=== PATIENT | female | born 1965 | race African-American/Black ===

== ENCOUNTER 2023-05-28 00:53 | Observation (INO) | payer OTHER, SELFPAY ==
[2023-05-28] VITALS (20 sets, daily range): BP systolic 107–145; BP diastolic 63–99; PULSE 63–117; RESP 15–22; TEMP 35.7–36.8; O2SAT 96–100; BMI 39.1
--- NOTE | ~2023-05-28 | XR_ITS ---
EXAMINATION: XR chest 1V portable DATE: 05/28/2023 02:32 INDICATION: Palpitations. TECHNIQUE: A single frontal view of the chest was obtained. COMPARISON: None. FINDINGS: There is no pneumonia, pleural effusion, or pneumothorax. The heart size is normal. There a re changes of anterior fusion procedure in cervical spine. IMPRESSION: 1. No acute cardiopulmonary disease. Reviewed, dictated and finalized at location E.
--- NOTE | 2023-05-28 02:13 | ECG_ITS ---
Measurements Intervals [place] Rate: 120 P: CO: 0 QRS: 94 QRSD: 100 T: -26 QT: 328 QTc: 464 Interpretive Statements ATRIAL FIBRILLATION WITH RAPID VENTRICULAR RESPONSE RIGHT AXIS DEVIATION CANNOT RULE OUT SEPTAL INFARCT, AGE INDETERMINATE BORDERLINE ST-T WAVE ABNORMALITY- INFERIOR LEADS ABNORMAL ECG NO PREVIOUS ECG AVAILABLE FOR COMPARISON Electronically Signed On 05-28-2023 6:37:44 CDT by Jean Carlos Barbour D.O.
[2023-05-28 02:31] LABS: Basophils Percent Auto 0.3 % (0.2-1.2); Eosinophils Absolute Auto 0.1 K/mm3 (0-0.3); Eosinophils Percent Auto 2.1 % (0-4.4); Hematocrit 38.4 % (37.0-47.0); Hemoglobin 12.3 g/dL (12.0-15.0); Immature Granulocyte Absolute 0.02 K/mm3 (0.00-0.031); Immature Granulocyte Percent A 0.3 % (0-0.5); Lymphocytes Absolute Auto 2.79 K/mm3 (0.9-3.2); Lymphocytes Percent Auto 41.3 % (18.3-44.2); Mean Corpuscular Hemoglobin 26.9 pg (26-34); Mean Platelet Volume 9.7 fl (7.4-10.4); Monocytes Absolute Auto 0.5 K/mm3 (0.1-0.6); Monocytes Percent Auto 6.8 % (2.6-8.5); Neutrophils Absolute Auto 3.3 K/mm3 (1.3-6.7); Neutrophils Percent Auto 49.2 % (45.5-73.1); Platelet Count Result 445 k/mm3 (150-375); Red Blood Count 4.57 M/mm3 (4.2-5.4); White Blood Count 6.8 K/mm3 (4.5-10.0)
--- NOTE | 2023-05-28 02:32 | ED.GENADULT ---
HPI - General Adult General Chief complaint: Headache Stated complaint: high blood pressure Time Seen by Provider: 05/28/23 02:07 History of Present Illness HPI narrative: Patient is a 58-year-old female who presents the emergency department with chief complaint of feeling dizzy and palpitations patient states she had some pressure in her head and noticed that her blood pressure was elevated in the 140s over 120s the patient states that she is on medicines for high blood pressure. The patient states that she is feeling better since she has been here in the emergency department. Patient states that she had no chest pain denies shortness of breath. Related Data Allergies Allergy/AdvReac Type Severity Reaction Status Date / Time No Known Allergies Allergy Verified 05/28/23 01:36 Review of Systems Review of Systems: A 10 system review of systems was completed on the patient and is negative except for what is stated in the HPI. Nursing and ancillary documentation was reviewed. Exam Narrative: GENERAL: Well-appearing, well-nourished, and in no acute distress. HEAD: Normocephalic, atraumatic. EYES: PERRLA and EOMI. ENT: Nares clear, no rhinorrhea or epistaxis. Mucous membranes moist. NECK: Supple. CHEST: Clear to auscultation. No respiratory distress. HEART: Tachycardic rate rate irregular and rhythm. No murmur heard. Normal peripheral pulses. ABDOMEN: Soft, nontender, nondistended, normal active bowel sounds. EXTREMITIES: Normal range of motion. No edema. SKIN: Warm, dry, no rash. NEURO: No focal deficits. Alert and oriented x3. PSYCH: Normal mood and affect. Course Vital Signs Vital signs: Vital Signs Temperature 36.8 C 05/28/23 00:57 Pulse Rate 85 05/28/23 00:57 Respiratory Rate 20 05/28/23 00:57 Blood Pressure 140/99 H 05/28/23 00:57 Pulse Oximetry 97 05/28/23 00:57 Oxygen Delivery Room Air 05/28/23 00:57 Temperature 36.6 C 05/28/23 01:37 Pulse Rate 106 H 05/28/23 02:56 Respiratory Rate 19 05/28/23 02:56 Blood Pressure 145/87 H 05/28/23 02:56 Pulse Oximetry 99 05/28/23 02:56 Oxygen Delivery Room Air 05/28/23 00:57 Medical Decision Making MDM Narrative Medical decision making narrative: Differential diagnosis includes dysrhythmia, electrolyte abnormality, EKG showed atrial fibrillation with a rate of [address] elevation or ST depression Laboratory studies were obtained which showed a potassium of 3.7 otherwise electrolytes are within normal limits magnesium was 2.2 CBC was within normal limits troponin was negative Chest x-ray showed no focal infiltrates no widened mediastinum Patient was given 10 mg IV Cardizem bolus and started on 5 mg drip patient's heart rate currently is 92 with A-fib Case was discussed with the hospitalist and the patient be admitted for further evaluation. Vital Signs Vital Signs: Vital Signs Temperature 36.8 C 05/28/23 00:57 Pulse Rate 85 05/28/23 00:57 Respiratory Rate 20 05/28/23 00:57 Blood Pressure 140/99 H 05/28/23 00:57 Pulse Oximetry 97 05/28/23 00:57 Oxygen Delivery Room Air 05/28/23 00:57 Temperature 36.6 C 05/28/23 01:37 Pulse Rate 106 H 05/28/23 02:56 Respiratory Rate 19 05/28/23 02:56 Blood Pressure 145/87 H 05/28/23 02:56 Pulse Oximetry 99 05/28/23 02:56 Oxygen Delivery Room Air 05/28/23 00:57 Lab Data 05/28/23 02:25 05/28/23 02:25 Labs: Lab Results 05/28/23 Range/Units 02:25 WBC 6.8 (4.5-10.0) K/mm3 RBC 4.57 (4.2-5.4) M/mm3 Hgb 12.3 (12.0-15.0) g/dL Hct 38.4 (37.0-47.0) % MCV 84.0 (80-100) fl MCH 26.9 (26-34) pg MCHC 32.0 (32-36) g/dl RDW 15.0 H (11.5-14.5) % Plt Count 445 H (150-375) k/mm3 MPV 9.7 (7.4-10.4) fl Immature Gran % (Auto) 0.3 (0-0.5) % Neut % (Auto) 49.2 (45.5-73.1) % Lymph % (Auto) 41.3 (18.3-44.2) % [place] % (Auto) 6.8 (2.6-8.5) % Eos % (Auto) 2.1 (0-4.4)
[2023-05-28] MEDS: dilTIAZem HCl INJ 25 MG/5 ML VIAL 10 MG IV PUSH (02:39)
[2023-05-28] MEDS: dilTIAZem 100 MG/100 ML 100 MG/100 ML BAG IV CONT (02:39)
[2023-05-28 02:43] LABS: Alanine Aminotransferase 24 U/L (6-35); Alkaline Phosphatase 91 U/L (38-126); Anion Gap 7 mmol/L (8-16); Aspartate Amino Transferase 31 U/L (14-36); Bilirubin,Total 0.4 mg/dL (0.2-1.3); Blood Urea Nitrogen 16 mg/dL (7-17); Calcium 8.5 mg/dL (8.4-10.2); Carbon Dioxide 24 mmol/L (22-30); Chloride 109 mmol/L (98-107); Estimated CRCL calculation 74 ml/min; Estimated Glomerular Filt Rate > 60; Glucose 133 mg/dL (65-110); Magnesium 2.2 mg/dL (1.6-2.3); Potassium 3.7 mmol/L (3.4-5.0); Sodium 140 mmol/L (137-145)
[2023-05-28 02:55] LABS: Troponin I < 0.012 ng/mL (0.000-0.034)
[2023-05-28] MEDS: POTASSIUM CHLORIDE 20 MEQ PACKET (FOR LIQUID) 40 MEQ PO (03:25)
[2023-05-28 03:35] LABS: Prothrombin Time 13.7 Seconds (11.1-14.7)
[2023-05-28 03:36] LABS: Partial Thromboplastin Time 34.9 SECONDS (22.3-36.8)
--- NOTE | 2023-05-28 04:44 | ADMGEN ---
This patient, Sharla Cleary, was admitted to IMU Room 207-01 on 05/28/2023 at 0428. Patient/family oriented to hospital policies and general routines including ID bracelet, bed and alarms, visiting hours, pain management, procedures, bathroom and other care routines, personal items, smoking policy, room service/diet, and visiting hours. Information on how to activate the Rapid Response Team has been discussed. Patient/Family are encouraged to report perceived risks to care and to ask questions if they do not understand what they are told or what they should do.
--- NOTE | 2023-05-28 04:47 | ECG_ITS ---
Measurements Intervals [place] Rate: 65 P: 25 [place]: 173 QRS: 76 QRSD: 97 T: -8 QT: 410 QTc: 428 Interpretive Statements SINUS RHYTHM BORDERLINE R WAVE PROGRESSION, ANTERIOR LEADS BORDERLINE ST-T WAVE ABNORMALITY- ANT/INF LEADS BORDERLINE ECG COMPARED TO ECG 05/28/2023 02:23:52 SINUS RHYTHM NOW PRESENT Electronically Signed On 05-28-2023 6:38:46 CDT by Jean Carlos Barbour D.O.
--- NOTE | 2023-05-28 04:57 | PM.IMHP ---
H&P: HPI History of Present Illness Date/Time: 05/28/23 04:30 Chief Complaint: Palpitations and dizziness. Narrative: This is a very pleasant 58-year-old female with hypertension who presented to the emergency department via private vehicle from home for evaluation of palpitations and dizziness. The patient provides the following history. At about 19:00 while doing nothing in particular she developed palpitations which has occurred intermittently over the last couple of years. These palpitations have lasted much longer than usual however. She was able to fall asleep however got up at about 00:30 to use the bathroom at which time her heart felt like it was beating rapidly irregularly and she felt dizzy with a slight headache. She took her blood pressure and reports that it was in the 140s over 120s which is very unusual for her and she came in for evaluation. She was in atrial fibrillation with rapid ventricular response on arrival to the ER with rates in the 120s. She was bolused with diltiazem and was started on a drip and she is being admitted to the IMU in this setting for further workup of new onset atrial fibrillation. At the time my evaluation she has converted to a sinus rhythm with rates in the 60s. She is feeling fine and has no current complaints. She has no known history of atrial fibrillation though she has had intermittent palpitations as detailed above. She drinks 1 cup of coffee a day and denies alcohol use. No illicit substance use. She has no known history of thyroid disease, cardiac dysrhythmia, or valvular heart disease. She has no concerns for sleep apnea. She has not had exertional chest pain, pleuritic pain, or shortness of breath. No nausea, vomiting, or sweats. Review of Systems Review of Systems: Twelve systems were reviewed and are negative except for as per HPI. [facility] Past Medical History Medical History (Updated 05/28/23 @ 05:08 by Sarika Correia PA-C) Hypertension Surgical History Surgical History History of cervical spinal arthrodesis History of hysterectomy History of tonsillectomy Family History Family History Mother Hypertension Social History Social History (Updated 05/28/23 @ 05:03 by Sarika Correia PA-C) Social History: Surrogate medical decision maker: Sarahi Bernardo, sibling. Code status: Full code. Smoking status: Never smoker Alcohol intake: never Substance use: never Lack of Transportation: No Lack of Food: Never True Current Housing: I Have Housing Concerned About Future Housing: No Difficulty Paying Gas/Electric Bills: No Difficulty Paying for Meds: No Currently Unemployed: No Education: High School Diploma/GED Difficulty w/ Childcare or Family Care: No Additional living arrangements comments: Lives with sister in [place]. Additional occupation/education comments: Currently unemployed. Spiritual care concerns: No Meds Home Medications and Allergies Home Medications Medication Instructions Recorded Confirmed Type amlodipine 10 mg tablet 10 mg PO DAILY 05/28/23 05/28/23 History Allergies Allergy/AdvReac Type Severity Reaction Status Date / Time No Known Allergies Allergy Verified 05/28/23 01:36 Vital Signs Vital Signs - 24 hr 05/28/23 00:57 05/28/23 01:37 05/28/23 02:27 Temperature 98.2 F 97.8 F Pulse Rate 85 103 H 115 H Respiratory Rate 20 16 15 Blood Pressure 140/99 H 136/96 H 113/74 Pulse Oximetry 97 96 99 Oxygen Delivery Room Air 05/28/23 02:39 05/28/23 02:43 05/28/23 02:44 Temperature Pulse Rate 113 H 92 95 Respiratory Rate Blood Pressure 128/88 130/83 134/77 Pulse Oximetry Oxygen Delivery 05/28/23 02:44 05/28/23 02:56 05/28/23 02:56 Temperature Pulse Rate 117 H 106 H 106 H Respiratory Rate 19 Blood Pressure 145/87 H 145/87 H Pulse Oximetry 99 Oxyg
--- NOTE | 2023-05-28 05:06 | ECHO_ITS ---
Patient Info Name: Sharla Cleary Age: 58 years : 1965 Gender: Female Ht: 62 in Wt: 213 lbs BSA: 2.11 m2 HR: 67 bpm BP: 121 / 72 mmHg Heart Rhythm: Sinus Rhythm Technical Quality: Fair Exam Date: 05/28/2023 11:08 AM Exam Location: [facility] Pulmonary Exam Room: [facility] Patient Status: Inpatient Admit Date: 05/28/2023 Staff Ordering Physician: Sarika Correia PA-C Routing Machine Operator: Janiya Killian RDCS Attending Provider: Monika Cardenas DO Referring Physician: Masood PLASENCIA; Exam Type: CA echo doppler color flow Study Info Indications - NEW ONSET AFIB Complete two-dimensional, color flow and Doppler transthoracic echocardiogram is performed. Summary 1. Complete two-dimensional, color flow and Doppler transthoracic echocardiogram is performed. 2. Normal left ventricular size thickness and systolic function. 3. Trivial tricuspid and pulmonic regurgitation otherwise no significant valve dysfunction. 4. No pericardial fluid. 5. Normal sinus rhythm. Left Ventricle Left ventricular chamber dimension is normal. Left ventricular systolic function is normal, estimated at 55-60%. The left ventricular diastolic function is grade I diastolic dysfunction. Right Ventricle Right ventricular chamber dimension is normal. Left Atria Left atrial chamber dimension is normal. Right Atria Right atrial chamber dimension is normal. Aortic Valve The aortic valve is normal. Pulmonic Valve The pulmonic valve is normal. There is trace pulmonic regurgitation. Mitral Valve The mitral valve has normal leaflets. Tricuspid Valve The tricuspid valve leaflets are normal. There is trace tricuspid valve regurgitation. Pericardium/Pleural The pericardium appears normal. Aorta The aortic root size at the sinus of Valsalva is normal. Left Ventricular Outflow Tract Name Value Normal LVOT 2D LVOT Diameter 2.0 cm LVOT Doppler LVOT Peak Gradient 5 mmHg LVOT Mean Gradient 3 mmHg LVOT VTI 22 cm LVOT VTI/AV VTI Ratio 0.8 LVOT Stroke Volume 67 ml LVOT CO 14.7 l/min LVOT CI 7.0 l/min/m2 Pulmonic Valve Name Value Normal PV Doppler PV Peak Gradient 3 mmHg Mitral Valve Name Value Normal MV Doppler MV Decel [place] 276 cm/s2 MV PHT 65 ms MV Area (PHT) 3.4 cm2 4.0-5.0 MV Diastolic Function MV E Peak Velocity
[2023-05-28 06:40] LABS: Troponin I < 0.012 ng/mL (0.000-0.034)
[2023-05-28 09:15] LABS: Troponin I < 0.012 ng/mL (0.000-0.034)
[2023-05-28] MEDS: ASPIRIN 81 MG CHEWABLE TABLET PO (09:28)
--- NOTE | 2023-05-28 12:01 | PM.CNCAR ---
Assessment and Plan Assessment and plan (1) Atrial fibrillation with rapid ventricular response: Code(s): I48.91 - Unspecified atrial fibrillation Status: Acute Plan This is a 58-year-old obese lady with hypertension presenting with symptomatic atrial fibrillation last evening. She has been treated with diltiazem to provide rate control and then she has spontaneously converted to sinus rhythm. This is most likely a manifestation of longstanding hypertension however echocardiogram results are pending. At this time I would recommend transitioning her hypertension medication to metoprolol and recommending systemic anticoagulation I will start systemic anticoagulation with Xarelto. The case workers are looking into the cost for these a since since she apparently has Medicaid. Since she is back in sinus rhythm and is asymptomatic there is not any immediate cardiac reason she must remain in the hospital. I will arrange for timely follow-up in my office and explained to the patient that she certainly might have recurrences of atrial fibrillation as we determine how best to treat this. Thank you for asking me to see this nice lady in consultation Bogdan Goodwin MD [facility] History of Present Illness History of Present Illness Consult date/time: 05/28/23 12:01 Reason For Visit: New Onset A-Fib with RVR Narrative: This is a very pleasant 58-year-old lady I am seeing at the request of the hospitalist because of atrial fibrillation. She is unknown to me prior to this consultation and reports no prior knowledge of any cardiac problems. She does have hypertension which is a long-standing problem she takes amlodipine for. She does not have any history of dyslipidemia or diabetes she is a lifelong nonsmoker. She came into the emergency room last evening with the abrupt onset of tachycardia and palpitations that she noted while she was at home. Upon arrival is noted she was in atrial fib with RVR she was of course placed on intravenous diltiazem in the emergency room and admitted to the IMU. Shortly thereafter she converted to sinus rhythm and has been asymptomatic since then. She feels well at this time and offers no other complaints. An echocardiogram was ordered and done a short time ago the results of that are pending. She did not have any sense of chest pain pressure or heaviness he has not been experiencing orthopnea PND or edema. She has no history of syncope. 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 For that reason she is familiar with atrial fibrillation and has some experience with this type of arrhythmia. Review of Systems Constitutional: Constitutional: Reports no additional constitutional complaints Eyes: Eyes: Reports no additional eye complaints ENT: Reports system reviewed and no additional complaints, except as documented Cardiovascular: Cardiovascular: Reports as per HPI Respiratory: Respiratory: Reports no additional respiratory complaints Gastrointestinal: Gastrointestinal: Reports no additional gastrointestinal complaints Musculoskeletal: Musculoskeletal: Reports no additional musculoskeletal complaints Integumentary/Breasts: Skin/Breast: Reports system reviewed and no additional complaints, except as docu Neurologic: Reports system reviewed and no additional complaints, except as documented Endocrine: Endocrine: Reports no additional endocrine complaints Hematologic/Lymphatic: Hematologic/Lymphatic: Reports no additional hematologic/lymphatic complaints Allergic/Immunologic: Allergic/Immunologic: Reports no additional allergic/immunologic complaints [facility] Past Medical History Medical History (Updated 05/28/23 @ 05:08 by Sarika Correia PA-C) Hypertension Surgical History Surgical History History of cervical spinal arthrodesis History of hysterectomy History of tonsillectomy Family
--- NOTE | 2023-05-28 13:23 | PM.DS ---
DS: Admitting Diagnosis Discharge Date 05/28/23 Admitting Diagnosis AFib with RVR DS: Discharge Diagnosis Discharge Diagnosis (1) Atrial fibrillation, new onset: Code(s): I48.91 - Unspecified atrial fibrillation Status: Acute (2) Atrial fibrillation with rapid ventricular response: Code(s): I48.91 - Unspecified atrial fibrillation Status: Acute DS: Summary Hospital Course Reason for hospitalization: Rapid heart rate Hospital Course: Patient is a pleasant 58-year-old female with past medical history of essential hypertension who presents to ED complaints of heart palpitations and dizziness. Patient has new recent illnesses, medication changes, a recent travel. Patient also has home blood pressure cuff was found to be hypertensive home. In the ED she was found to be in RVR and started on diltiazem drip. Within a few hours she converted to normal sinus rhythm. Her chads Vasc score is low. TSH within normal limits, troponins negative, no ST changes EKG. Echocardiogram shows no wall motion abnormality, LVEF 55-60%, grade 1 diastolic dysfunction. recommendations from eligibility manager are rate control with metoprolol 50 mg daily and anticoagulation with Xarelto. Prescriptions given. At time of discharge patient's labs stable, vitals stable, patient is stable for discharge home. Patient understands and agrees with plan. Status at Discharge Cognitive/behavioral status at discharge: Baseline Time Spent with Patient Time attestation: Total time spent providing and/or coordinating discharge services: 35 Exam Narrative: - GENERAL: Pleasant woman in no acute distress. Well-nourished. - EYES: EOMI. Anicteric. - HENT: Moist mucous membranes. - LUNGS: Clear to auscultation bilaterally, no wheezing, rhonchi, or rales. - CARDIOVASCULAR: Regular rate and rhythm. No murmur. No JVD. - ABDOMEN: Soft, non-tender and non-distended. No palpable masses. - EXTREMITIES: No edema. Peripheral pulses 2+. Non-tender. - NEUROLOGIC: No focal neurological deficits. CN II-XII grossly intact. - PSYCHIATRIC: Awake, Alert and oriented x 3. Appropriate mood and affect. - SKIN: No rashes or lesions. Warm. - LYMPH: No cervical lymphadenopathy. DS: Data Data Completed and Pending Labs on day of discharge: Labs from last 24 hours 05/28/23 05/28/23 05/28/23 08:45 06:12 02:25 WBC 6.8 RBC 4.57 Hgb 12.3 Hct 38.4 MCV 84.0 MCH 26.9 MCHC 32.0 RDW 15.0 H Plt Count 445 H MPV 9.7 Immature Gran % (Auto) 0.3 Neut % (Auto) 49.2 Lymph % (Auto) 41.3 [place] % (Auto) 6.8 Eos % (Auto) 2.1 Baso % (Auto) 0.3 Lymph # (Auto) 2.79 [place] # (Auto) 0.5 Eos # (Auto) 0.1 Baso # (Auto) 0.0 Abs Immat Gran (auto) 0.02 Absolute Neuts (auto) 3.3 Absolute Nucleated RBC 0.0 Nucleated RBC % 0.0 PT 13.7 INR 1.0 APTT 34.9 Sodium 140 Potassium 3.7 Chloride 109 H Carbon Dioxide 24 Anion Gap 7 L BUN 16 Creatinine 0.80 Estim Creat Clear Calc 74 Estimated GFR > 60 Glucose 133 H Calcium 8.5 Magnesium 2.2 Total Bilirubin 0.4 AST 31 ALT 24 Alkaline Phosphatase 91 Troponin I < 0.012 < 0.012 < 0.012 Total Protein 8.0 Albumin 4.0 TSH (Reflex) 1.370 Imaging Radiologist's impression: CXR 05/28 no acute finding Additional Comments Additional comments: TTE 05/28/23 Summary ? 1. Complete two-dimensional, color flow and Doppler transthoracic echocardiogram is performed. ? 2. Normal left ventricular size thickness and systolic function. ? 3. Trivial tricuspid and pulmonic regurgitation otherwise no significant valve dysfunction. ? 4. No pericardial fluid. ? 5. Normal sinus rhythm. Discharge Plan Discharge Attending physician on discharge: Monika Cardenas Consulting providers: Nikkie Ferris Discharging Clinician: Monika Cardenas Anticipated Discharge Date/Time: 05/28/23 13:28 [place]
[2023-05-28] MEDS: RIVAROXABAN 20 MG TABLET PO (14:25)
[2023-05-28] MEDS: METOPROLOL SUCCINATE EXT REL 50 MG TABCR PO (14:26)
--- NOTE | 2023-05-28 14:38 | PC.NURSE ---
1435-While going over discharge paperwork patient stated that she took her home amlodipine this morning. Patient also received first dose of 50mg metoprolol . Educated about the dangers of taking home medications while admitted into the hospital and how they should be locked up. While monitor patient and asses vital signs before discharging home.
== END 2023-05-28 16:30 | disposition home or self-care (01) ==
LOC: ANHED 03:25 → ANHIMU 03:50
PROVIDERS: Physician Assistant; Admitting Provider Internal Medicine; Emergency Provider Emergency Medicine; PCP Internal Medicine; Visit Provider Student in an Organized Health Care Education/Training Program
DX: I48.91 Unspecified atrial fibrillation (principal); I10 Essential (primary) hypertension; I45.19 Other right bundle-branch block; F41.9 Anxiety disorder, unspecified; Z79.899 Other long term (current) drug therapy
CPT/HCPCS: 36415; 71045; 80053; 83735; 84443; 84484; 85025; 85610; 85730; 93005; 93306; 96365; 96366; 99285; A9270; G0378; G0379

== ENCOUNTER 2023-06-13 19:33 | Emergency (ER) | payer MEDICAID, SELFPAY ==
--- NOTE | 2023-06-13 19:34 | ECG_ITS ---
Measurements Intervals [place] Rate: 69 P: 54 PA: 180 QRS: 53 QRSD: 89 T: -27 QT: 365 QTc: 392 Interpretive Statements SINUS RHYTHM NONSPECIFIC T-WAVE ABNORMALITY BORDERLINE ECG COMPARED TO ECG 05/28/2023 04:54:04 T-WAVE ABNORMALITY NOW PRESENT Electronically Signed On 06-14-2023 16:48:58 CDT by Simon Dick M.D.
[2023-06-13 19:35] VITALS: BP 173/88; PULSE 86; RESP 19; TEMP 36.4; O2SAT 100
[2023-06-13 19:46] LABS: Basophils Percent Auto 0.5 % (0.2-1.2); Eosinophils Absolute Auto 0.1 K/mm3 (0-0.3); Eosinophils Percent Auto 1.8 % (0-4.4); Hematocrit 39.5 % (37.0-47.0); Hemoglobin 12.3 g/dL (12.0-15.0); Immature Granulocyte Absolute 0.01 K/mm3 (0.00-0.031); Immature Granulocyte Percent A 0.1 % (0-0.5); Lymphocytes Absolute Auto 4.07 K/mm3 (0.9-3.2); Lymphocytes Percent Auto 53.3 % (18.3-44.2); Mean Corpuscular HGB Conc 31.1 g/dl (32-36); Mean Corpuscular Hemoglobin 26.6 pg (26-34); Mean Corpuscular Volume 85.3 fl (80-100); Mean Platelet Volume 9.8 fl (7.4-10.4); Monocytes Absolute Auto 0.5 K/mm3 (0.1-0.6); Monocytes Percent Auto 7.1 % (2.6-8.5); Neutrophils Absolute Auto 2.8 K/mm3 (1.3-6.7); Neutrophils Percent Auto 37.2 % (45.5-73.1); Platelet Count Result 466 k/mm3 (150-375); Red Blood Count 4.63 M/mm3 (4.2-5.4); Red Cell Distribution Width 14.8 % (11.5-14.5); White Blood Count 7.6 K/mm3 (4.5-10.0)
[2023-06-13 19:56] LABS: Alanine Aminotransferase 28 U/L (6-35); Albumin Level 4.3 g/dL (3.5-5.1); Alkaline Phosphatase 87 U/L (38-126); Anion Gap 5 mmol/L (8-16); Aspartate Amino Transferase 28 U/L (14-36); Bilirubin,Total 0.4 mg/dL (0.2-1.3); Blood Urea Nitrogen 14 mg/dL (7-17); Calcium 8.6 mg/dL (8.4-10.2); Carbon Dioxide 27 mmol/L (22-30); Chloride 108 mmol/L (98-107); Estimated CRCL calculation 66 ml/min; Estimated Glomerular Filt Rate > 60; Glucose 128 mg/dL (65-110); INR 1.8; Potassium 4.1 mmol/L (3.4-5.0); Prothrombin Time 21.8 Seconds (11.1-14.7); Sodium 140 mmol/L (137-145)
[2023-06-13 19:57] LABS: Partial Thromboplastin Time 37.9 SECONDS (22.3-36.8)
--- NOTE | 2023-06-13 20:54 | ED.GENADULT ---
HPI - General Adult General Chief complaint: Recheck/Abnormal Lab/Rx Stated complaint: High blood pressure Time Seen by Provider: 06/13/23 20:09 History of Present Illness [facility] narrative: Patient presents the emergency department with concern for her blood pressure. She was admitted to the hospital 3 weeks ago for new onset A-fib RVR. Per fabrics and material cutter's note she was DC'd on her amlodipine and started on metoprolol. She states her heart rate has been normal since but her blood pressures have been elevated. She is checking her blood pressure multiple times throughout the day. She notes it gets higher the more often that she checks it. She is asymptomatic with these blood pressure changes. She has an appointment with her fabrics and material cutter in 3 weeks at her primary care doctor in a month. Patient is very pleasant her exam is grossly benign. 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 Related Data Allergies Allergy/AdvReac Type Severity Reaction Status Date / Time No Known Allergies Allergy Verified 06/13/23 19:37 Review of Systems Review of Systems: Review of systems negative except what is documented in the [facility] Past Medical History Medical History (Updated 06/13/23 @ 21:02 by Jenny Ashley MD) Hypertension Surgical History Surgical History History of cervical spinal arthrodesis History of hysterectomy History of tonsillectomy Family History Family History Mother Hypertension Social History Social History (Updated 05/28/23 @ 05:03 by Sarika Correia PA-C) Social History: Surrogate medical decision maker: Sarahi Bernardo, sibling. Code status: Full code. Smoking status: Never smoker Alcohol intake: never Substance use: never Lack of Transportation: No Lack of Food: Never True Current Housing: I Have Housing Concerned About Future Housing: No Difficulty Paying Gas/Electric Bills: No Difficulty Paying for Meds: No Currently Unemployed: No Education: High School Diploma/GED Difficulty w/ Childcare or Family Care: No Additional living arrangements comments: Lives with sister in [place]. Additional occupation/education comments: Currently unemployed. Spiritual care concerns: No Exam Narrative: GENERAL: Well-appearing, well-nourished, and in no acute distress. HEAD: Normocephalic, atraumatic. EYES: PERRLA and EOMI. ENT: Nares clear, no rhinorrhea or epistaxis. Mucous membranes moist. NECK: Supple. CHEST: Clear to auscultation. No respiratory distress. HEART: Regular rate and rhythm. ABDOMEN: Soft, nontender, nondistended. EXTREMITIES: Normal range of motion. No edema. SKIN: Warm, dry, no rash. NEURO: No focal deficits. Alert and oriented x3. PSYCH: Normal mood and affect. Course Course Emergency Course: Differential diagnosis includes but not limited to anxiety, medication response Vital Signs Vital signs: Vital Signs Temperature 36.4 C 06/13/23 19:35 Pulse Rate 86 06/13/23 19:35 Respiratory Rate 19 06/13/23 19:35 Blood Pressure 173/88 H 06/13/23 19:35 Pulse Oximetry 100 06/13/23 19:35 Oxygen Delivery Room Air 06/13/23 19:35 Temperature 36.4 C 06/13/23 19:35 Pulse Rate 86 06/13/23 19:35 Respiratory Rate 19 06/13/23 19:35 Blood Pressure 173/88 H 06/13/23 19:35 Pulse Oximetry 100 06/13/23 19:35 Oxygen Delivery Room Air 06/13/23 19:35 Medical Decision Making Vital Signs Vital Signs: Vital Signs Temperature 36.4 C 06/13/23 19:35 Pulse Rate 86 06/13/23 19:35 Respiratory Rate 19 06/13/23 19:35 Blood Pressure 173/88 H 06/13/23 19:35 Pulse Oximetry 100 06/13/23 19:35 Oxygen Delivery Room Air 06/13/23 19:35 Temperature 36.4 C 06/13/23 19:35 Pulse Rate 86 06/13/23 19:35 Respiratory Rate 19 06/13/23 19:35 Blood Pressure 173/88 H 06/13/23 1
[2023-06-13 21:39] VITALS: BP 132/88; PULSE 62; RESP 15; O2SAT 96
== END 2023-06-13 21:41 | disposition home or self-care (01) ==
PROVIDERS: Emergency Provider Emergency Medicine; PCP Internal Medicine
DX: I10 Essential (primary) hypertension (principal)
CPT/HCPCS: 36415; 80053; 85025; 85610; 85730; 93005; 99283

== ENCOUNTER 2024-03-17 23:35 | Observation (INO) | payer OTHER, SELFPAY ==
--- NOTE | ~2024-03-17 | MR_ITS ---
EXAMINATION: MR brain/brain stem wo/w con DATE: 03/18/2024 10:34 CDT INDICATION: Vertigo. Right facial numbness. TECHNIQUE: Magnetic resonance imaging (MRI) of the brain and brainstem was performed without intraven ous contrast. Sequences included sagittal and axial T1-weighted SE, axial diffusion-weighted FS SE, a xial T2*-weighted GRE, axial T2-weighted FLAIR Propeller, and axial T2-weighted Propeller. Apparent d iffusion coefficient (ADC) maps were created. COMPARISON: FINDINGS: The brain volume and ventricular system are within normal limits. The brain parenchymal si gnal intensity pattern and eason/white matter is normal and there is no evidence of hemorrhage, space occupying masses or infarctions. The flow signal voids of the major arterial structures about the [place] of [place] and within the jeana r dural venous sinuses appear grossly unremarkable and patent. The seventh and eighth cranial nerve complexes are normal. The mid sagittal image demonstrates a normal craniovertebral junction and linnette us callosum. The paranasal sinuses are grossly unremarkable. There are a few areas of focal signal h yperintensity on FLAIR sequence in the deep white matter, likely within normal limits for age. No abnormal contrast enhancement was appreciated. IMPRESSION: 1: No acute intracranial abnormality. Reviewed, dictated and finalized at location B.
--- NOTE | ~2024-03-17 | CT_ITS ---
CT brain wo con Ordering provider: Chris Cortez MD History: 58 years Female with . CVA . Comparison: None. Technique: CT of the head without contrast. Radiation reduction technique utilized. DLP is 681 mGy-cm. FINDINGS: BRAIN PARENCHYMA AND CSF SPACES: No midline shift, mass effect or hemorrhage. The brain parenchyma a nd CSF spaces are otherwise normal. VISUALIZED PARANASAL SINUSES: Well aerated. MASTOIDS: Well aerated. BONES: The bones appear intact. SOFT TISSUES: Visualized nasopharynx is normal. Superficial soft tissues are normal. IMPRESSION: No acute intracranial findings. Reviewed, dictated and finalized at location A.
--- NOTE | ~2024-03-17 | XR_ITS ---
EXAMINATION: XR chest 1V 03/18/2024 00:46 INDICATION: CVA PROCEDURE: AP view of the chest COMPARISON: 05/28/2023 FINDINGS: The lungs are clear. The cardiomediastinal silhouette is within normal limits. There are no pleural effusions. There is no pneumothorax suspected. IMPRESSION: 1: NO ACUTE CARDIOPULMONARY DISEASE. Reviewed, dictated and finalized at location B.
--- NOTE | ~2024-03-17 | CT_ITS ---
EXAMINATION: CTA brain carotid DATE: 03/18/2024 07:52 CDT INDICATION: Vertigo. Right facial numbness. TECHNIQUE: Computed tomographic angiography (CTA) of the head was performed without and with 100 mL O mnipaque-350 intravenous contrast. CTA of the neck was performed with intravenous contrast. The dose- length product was 1136.77 mGy-cm. Maximum intensity projection and volume rendered 3D-reconstruction s were created by the technologist on a separate workstation. COMPARISON: None. FINDINGS: HEAD CTA: No significant abnormality of the anterior, middle or posterior cerebral arteries. No evide nce for significant stenosis, occlusion or aneurysm. NECK CTA: No significant vascular abnormality of the vertebral, common carotid, internal carotid armand tamra. No evidence for aneurysm, dissection or occlusion. No significant atherosclerotic change. Lung apices are unremarkable. There is 0% stenosis of the proximal right internal carotid artery relative to normal distal artery l umen diameter (NASCET criteria). There is 0% stenosis of the proximal left internal carotid artery re lative to normal distal artery lumen diameter. IMPRESSION: 1: No significant vascular abnormality of the head or neck. Reviewed, dictated and finalized at location B.
[2024-03-17 23:42] LABS: Glucose Point of Care 142 mg/dl (65-105)
--- NOTE | 2024-03-17 23:47 | ECG_ITS ---
Test Date: 2024-03-18 00:35:54 Measurements Intervals [place] Rate: 88 P: 61 MO: 157 QRS: 33 QRSD: 89 T: 4 QT: 359 QTc: 436 Interpretive Statements SINUS RHYTHM CANNOT R/O SEPTAL INFARCT, AGE INDETERMINATE BORDERLINE ST-T WAVE ABNORMALITY- INFERIOR LEADS BASELINE ARTIFACT- I, II, AVR, AVL ABNORMAL ECG No previous ECG available for comparison Electronically Signed On 03-18-2024 08:35:38 CDT by Jean Carlos Barbour D.O.
[2024-03-18] VITALS (14 sets, daily range): BP systolic 96–124; BP diastolic 58–78; PULSE 66–91; RESP 14–20; TEMP 36.2–36.4; O2SAT 97–100
[2024-03-18 00:30] LABS: Glucose Point of Care 120 mg/dl (65-105)
[2024-03-18] MEDS: MECLIZINE HCL 25 MG TABLET PO (00:32)
[2024-03-18] MEDS: SCOPOLAMINE 1 MG PATCH 1 PATCH TRANSDERM (00:32)
[2024-03-18 00:57] LABS: Basophils Percent Auto 0.3 % (0.2-1.2); Eosinophils Absolute Auto 0.1 K/mm3 (0-0.3); Eosinophils Percent Auto 0.5 % (0-4.4); Hematocrit 34.5 % (37.0-47.0); Hemoglobin 11.1 g/dL (12.0-15.0); Immature Granulocyte Absolute 0.04 K/mm3 (0.00-0.031); Immature Granulocyte Percent A 0.4 % (0-0.5); Lymphocytes Absolute Auto 1.87 K/mm3 (0.9-3.2); Lymphocytes Percent Auto 18.6 % (18.3-44.2); Mean Corpuscular HGB Conc 32.2 g/dl (32-36); Mean Corpuscular Hemoglobin 27.2 pg (26-34); Mean Corpuscular Volume 84.6 fl (80-100); Mean Platelet Volume 9.7 fl (7.4-10.4); Monocytes Absolute Auto 0.5 K/mm3 (0.1-0.6); Monocytes Percent Auto 5.3 % (2.6-8.5); Neutrophils Absolute Auto 7.5 K/mm3 (1.3-6.7); Neutrophils Percent Auto 74.9 % (45.5-73.1); Platelet Count Result 410 k/mm3 (150-375); Red Blood Count 4.08 M/mm3 (4.2-5.4); Red Cell Distribution Width 14.9 % (11.5-14.5); White Blood Count 10.1 K/mm3 (4.5-10.0)
[2024-03-18 01:10] LABS: INR 1.1; Prothrombin Time 14.8 Seconds (11.1-14.7)
[2024-03-18 01:11] LABS: Partial Thromboplastin Time 24.8 Seconds (22.3-36.8)
--- NOTE | 2024-03-18 01:55 | ED.NEUROSD ---
HPI - Neuro Symptoms/Deficit General Chief Complaint: Suspected CVA Stated Complaint: dizzy, numbness to face Time Seen by Provider: 03/17/24 23:45 History of Present Illness HPI Narrative: This is a 58-year-old female presenting ED with chief complaint vertigo. Patient for the last week the patient has been having intermittent episodes so her triggered when she moves her head to the right or when she lays down. Her symptoms completely resolved in between episodes. Patient has a history of vertigo. Today at 6:00 p.m. her vertigo became worse. She does not have difficulty speaking, swallowing, double vision or weakness in any extremity. Patient had some tingling on the right side of her face which prompted her to come to emergency depart. Related Data Allergies Allergy/AdvReac Type Severity Reaction Status Date / Time No Known Allergies Allergy Verified 03/18/24 00:31 Exam Narrative: APPEARANCE: No apparent distress. Head: atraumatic. TMs normal, no erythema posterior pharynx EYES: EOMI, NOSE: Atraumatic NECK: Trachea midline RESPIRATORY: No increased rate of breathing CARDIOVASCULAR: RRR, ABDOMINAL: Non-distended MUSCULOSKELETAl: No obvious deformities NEURO: Alert. Decreased sensation on R face. The rest of cranial nerves 2-12 grossly intact. Sensation light touch, motor function cerebellar function intact for 4 extremities. No nystagmus at rest, test of skew negative, head impulse indeterminate. Patient was unable to ambulate without assistance due to loss of balance SKIN:: Warm, dry. Normal color PSYCHIATRIC: Normal affect Course Vital Signs Vital signs: Vital Signs Temperature 97.6 F 03/18/24 00:25 Pulse Rate 90 03/18/24 00:25 Respiratory Rate 14 03/18/24 00:25 Blood Pressure 120/78 03/18/24 00:25 Pulse Oximetry 100 03/18/24 00:25 Oxygen Delivery Room Air 03/18/24 00:25 Temperature 97.6 F 03/18/24 00:25 Pulse Rate 73 03/18/24 02:30 Respiratory Rate 18 03/18/24 02:30 Blood Pressure 96/58 L 03/18/24 02:30 Pulse Oximetry 99 03/18/24 02:30 Oxygen Delivery Room Air 03/18/24 00:25 MDM - Neuro Symptoms/Deficit MDM Narrative Medical decision making narrative: -Course: 58-year-old female presenting with episodic vertigo and facial numbness. Patient was triaged as a code stroke. Last known normal 6:00 p.m. NIH 1 for decreased sensation on the right side of the face. CTA negative. LKK 6pm. Not a tpa candidate. Patients symptoms more consistent with a peripheral vertigo except for the associated facial numbness. Patient treated with meclizine scopolamine Reglan. Patient experienced some improvement but when we tried to ambulate her she still cannot walk. Patient will be admitted to the hospital for further evaluation. -DDX includes but is not limited to: peripheral vertigo, central vertigo, ear infection -Co-morbidities complicating care: History of vertigo -Independent interpretation of studies: Labs reviewed. Imaging reviewed. CTA head and neck unremarkable Independent EKG interpretation: Rhythm [sinus], Rate [88], [place] -[normal], HI -[normal], QRS [narrow], QTC [normal], T waves -[negative for concerning inversions], ST Segments - [Negative for concerning elevations] Final interpretations: [Normal Sinus Rhythm] -Interventions: Meclizine, Scopolamine, Reglan, asa -Shared decision making / Disposition:observation Lab Data 03/18/24 00:51 03/18/24 01:48 Labs: Lab Results 03/17/24 03/18/24 03/18/24 Range/Units 23:40 00:28 00:51 WBC 10.1 H (4.5-10.0) K/mm3 RBC 4.08 L (4.2-5.4) M/mm3 Hgb 11.1 L (12.0-15.0) g/dL Hct 34.5 L (37.0-47.0) % MCV 84.6 (80-100) fl MCH 27.2 (26-34) pg MCHC 32.2 (32-36) g/dl RDW 14.9 H (11.5-14.5) % Plt Count 410 H (150-375) k/mm3 MPV 9.7 (7.4-10.4) fl Immature Gran % (Auto) 0.4 (0-0.5) % Neut % (Auto) 74.9 H (45.5-73.1) % Lymph
[2024-03-18 02:02] LABS: Alanine Aminotransferase 21 U/L (6-35); Alkaline Phosphatase 78 U/L (38-126); Anion Gap 10 mmol/L (4-12); Aspartate Amino Transferase 24 U/L (14-36); Bilirubin,Total 0.6 mg/dL (0.2-1.3); Blood Urea Nitrogen 13 mg/dL (7-17); Calcium 8.8 mg/dL (8.4-10.2); Carbon Dioxide 23 mmol/L (22-30); Chloride 104 mmol/L (98-107); Estimated CRCL calculation 70 ml/min; Estimated Glomerular Filt Rate > 60; Glucose 97 mg/dL (65-110); Potassium 4.1 mmol/L (3.4-5.0); Sodium 137 mmol/L (137-145)
[2024-03-18 02:13] LABS: Troponin I < 0.012 ng/mL (0.000-0.034)
--- NOTE | 2024-03-18 05:46 | ADMGEN ---
This patient, Sharla Cleary, was admitted to Medical Room 242-. Patient/family oriented to hospital policies and general routines including ID bracelet, bed and alarms, visiting hours, pain management, procedures, bathroom and other care routines, personal items, smoking policy, room service/diet, and visiting hours. Information on how to activate the Rapid Response Team has been discussed. Patient/Family are encouraged to report perceived risks to care and to ask questions if they do not understand what they are told or what they should do.
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
--- NOTE | 2024-03-18 12:21 | PC.NURSE ---
Physician put in an order to combine both charts for the patient. I called OB admitting at 1215 to let them know it needed to be combined and was told by Jenelle that we can request it be done but it wouldn't get done until Wednesday due to HIM not being here on the weekends.
--- NOTE | 2024-03-18 18:37 | PM.DS ---
DS: Admitting Diagnosis Discharge Date 03/18/24 Admitting Diagnosis Dizziness DS: Discharge Diagnosis Discharge Diagnosis (1) Dizziness: Code(s): R42 - Dizziness and giddiness Status: Acute (2) Atrial fibrillation: Code(s): I48.91 - Unspecified atrial fibrillation Status: Acute (3) Hypertension: Code(s): I10 - Essential (primary) hypertension Status: Acute (4) Vertigo: Code(s): R42 - Dizziness and giddiness Status: Acute DS: Summary Hospital Course Reason for hospitalization: 58yo female with hx of AFib and HTN here for dizziness and facial numbness. Please see H&P for details. Hospital Course: Patient presents with dizziness. In the ED, she was hemodynamically stable. EKG showed normal sinus rhythm with possible age-indeterminate septal infarct and borderline ST-T wave changes in inferior leads. No old EKG to compare. Head CT showed no acute findings. Chest x-ray was clear. CTA of the head and neck showed no acute findings. White count was 10K with hemoglobin of 11 and platelet count of 410K. CMP was normal except for a nonfasting glucose of 120. Troponin was negative x1. Patient received scopolamine patch and a dose of Antivert. Her symptoms improved. Her BP was soft but she denies feeling lightheaded with standing at home. We held metoprolol for now. Neuro consulted. Brain MRI showing no acute intracranial abnormalities and the seventh and eight nerve complexes were normal. She overall did well and was able to be discharged on 03/18/24. Status at Discharge Cognitive/behavioral status at discharge: stable Time Spent with Patient Time attestation: Total time spent providing and/or coordinating discharge services: 55 minutes Time spent: Greater than 30 minutes Exam Narrative: AF 97.5 116/69 72 16 97% Gen - well appearing female in no acute respiratory distress who is nontoxic-appearing lying semi recumbent in bed HEENT - normocephalic. Atraumatic. Pupils equal round and reactive. Extraocular motions intact. Sclera clear and anicteric. Nares patent. Oropharynx was clear. No oral lesions. Moist mucous membranes. Tongue was midline. Palate amina symmetrically. No facial asymmetry. Right TM opaque with normal light reflex. Left TM distorted but not erythematous Neck - neck was supple. No dominant adenopathy, thyromegaly or masses. 2+ carotid upstrokes without bruits. Chest - lungs are clear to auscultation bilaterally. No wheezes or crackles. Breast exam was deferred. CV - heart was regular rate and rhythm. S1-S2. No murmurs gallops or rubs. Tele showing no significant dysrhythmias Abd - abdomen was soft. Nontender. Nondistended. Positive bowel sounds. No organomegaly or masses. Ext - no clubbing, cyanosis or edema. 2+ DP pulses bilaterally. Neuro - patient is alert and oriented x4. Strength is 5/5 in both upper and lower extremities. Cranial nerves 2-12 are intact. Speech is clear. Psych - normal mood and affect. Patient is pleasant and cooperative. Skin - warm and dry. No rashes noted. DS: Data Data Completed and Pending Labs on day of discharge: Labs from last 24 hours 03/18/24 03/18/24 03/18/24 01:48 00:51 00:28 WBC 10.1 H RBC 4.08 L Hgb 11.1 L Hct 34.5 L MCV 84.6 MCH 27.2 MCHC 32.2 RDW 14.9 H Plt Count 410 H MPV 9.7 Immature Gran % (Auto) 0.4 Neut % (Auto) 74.9 H Lymph % (Auto) 18.6 [place] % (Auto) 5.3 Eos % (Auto) 0.5 Baso % (Auto) 0.3 Lymph # (Auto) 1.87 [place] # (Auto) 0.5 Eos # (Auto) 0.1 Baso # (Auto) 0.0 Abs Immat Gran (auto) 0.04 H Absolute Neuts (auto) 7.5 H Absolute Nucleated RBC 0.000 Nucleated RBC % 0.0 PT 14.8 H INR 1.1 APTT 24.8 Sodium 137 Potassium 4.1 Chloride 104 Carbon Dioxide 23 Anion Gap 10 BUN 13 Creatinine 0.80 Estim Creat Clear Calc 70 Estimated GFR > 60 Glucose 97 PO
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
== END 2024-03-18 19:00 | disposition home or self-care (01) ==
LOC: ANHED 03-18 03:25 → ANH2MED 03-18 18:45
PROVIDERS: Admitting Provider Internal Medicine; Emergency Provider Emergency Medicine; Visit Provider Internal Medicine
DX: R42 Dizziness and giddiness (principal); I48.91 Unspecified atrial fibrillation; I11.9 Hypertensive heart disease without heart failure; Z79.85 Long-term (current) use of injectable non-insulin antidiabetic drugs
CPT/HCPCS: 36415; 70450; 70496; 70498; 70553; 71045; 80053; 82948; 84484; 85025; 85610; 85730; 93005; 99285; A9270; A9577; G0378; G0379; Q9967

== ENCOUNTER 2025-03-09 17:21 | Emergency (ER) | payer OTHER, SELFPAY ==
[2025-03-09 17:24] VITALS: BP 145/90; PULSE 101; RESP 16; TEMP 36.6; O2SAT 99
--- OUTSIDE RECORDS SUMMARY | 2025-03-09 17:24 | XMS_ITS | Encounter Summary ---
Author Organization [facility] Healthcare Address [address] [place] [address] Care Team Providers Care Front Desk Representative Name Role Phone Letty Vallejo MD Primary Care Provider [phone] Ender Palacios MD Unavailable [phone] Encounter Details Date Type Department Care Team (Late st Contact Info) Description 04/13/2024 Telephone [facility] Internal Medicine [address] [phone] Letty Vallejo MD [address] [place] [id number] Social History Tobacco Use Types Packs/Day Years Used Date Smoking Tobacco: Never Passive Smoke Exposure: Never Smokeless Tobacco: Never Alcohol Use Standard Drinks/Week Comments Not Currently 0 (1 standard drink = 0.6 oz pur e alcohol) AUDIT-C Answer Date Recorded Q1: How often do you have a drink containing alcohol? Never 04/17/2024 Q2: How many drinks containi ng alcohol do you have on a typical day when you are drinking? Patient does not drink Q3: How often do you have si x or more drinks on one occasion? Never 04/17/2024 PHQ-2 Answer Date Recorded PHQ-2 Total Score (If total score is 3 or more points, staff should administer the PHQ-9) 0 04/17/2024 Comments No Sex and Gender Information Value Date Recorded Sex Assigned at Not on file Legal Sex Female 2:41 AM [employer]AD [employer] Gender Identity Female 06/18/2021 7:49 PM CDT Sexual Orientation Straight 06/18/2021 7: 49 PM CDT documented as of this encounter Plan of Treatment Not on file documented as of this encounter Visit Diagnoses Not on filedocumented in this encounter Care Teams Front Desk Representative Relationship Specialty Start Date End Date Letty Vallejo MD [address] [place] [address] [place] [id number] PCP - General 11/02/19 Ender Palacios MD [address] [facility] [place] [address] Consulting Physician Plastic Surgery 12/12/21 documented as of this encounter
--- OUTSIDE RECORDS SUMMARY | 2025-03-09 17:24 | XMS_ITS | Clinical Summary ---
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 Organization Address City/State/[facility] Co de Phone Number [facility] [address] [place] [address] * (ABNORMAL) CBC with auto differential (02/24/2025 10:31 AM CDT) WBC 5.25 3.80 - 9.90 K/cumm Hgb 12.6 11.9 - 15.5 g/dL [facility] Hct 39.1 35.6 - 45.5 % [facility] Plt 455(H) 150 - 400 K/cumm [facility] MPV 9.8 9.1 - 12.3 fL [facility] RBC 4.64 3.90 - 5.20 M/cumm [facility] MCV 84.3 81.3 - 96.4 fL [facility] MCH 27.2 27.1 - 33.3 pg [facility] MCHC 32.2(L) 32.3 - 35.7 g/dL [facility] RDW CV 14.5 11.1 - 14.9 % [facility] RDW SD 44.2 35.7 - 48.1 fL [facility] NRBC abs 0.00 0.00 - 0.01 K/cumm [facility] Blood 02/24/2025 10:3 1 AM CDT 02/24/2025 10:38 AM CDT Letty Vallejo MD LAB BLOOD ORDERABLES Final Result ISMAEL JOSÉ [address] [place] [address] * (ABNORMAL) Lipid panel (02/24/2025 10:31 AM CDT) Cholesterol 218(H) 30 - 199 mg/dL Comment: Interpretive Data Ages < or = 19 years Acceptable: <170 mg/dL Borderline high: 170-199 mg/dL High: >or= 200 mg/dL Ages > or = 20 years Desirable: <200 mg/dL Borderline high: 200-239 mg/dL High: >or= 240 mg/dL Literature References: 1. Expert Panel on Integrated Guidelines for Cardiovascular Health and Risk Reduction in Children and Adolescents. Pediatrics 2011;128:S213 2. NCEP Expert Panel. Circulation 2004;110:227 Current Interpretive Data was last revised on 2018. Triglycerides 73 <=149 mg/dL ISMAEL Comment: Interpretive Data Ages < or = 9 years Acceptable: <75 mg/dL Borderline high: 75-99 mg/dL High: >or= 100 mg/dL Ages 10 to 20 years Acceptable: <90 mg/dL Borderline high: 90-129 mg/dL High: >or= 130 mg/dL Ages > or = 20 years Desirable: <150 mg/dL Borderline high: 150-199 mg/dL High: 200-499 mg/dL Very high: >or= 499 mg/dL Literature References: 1. Expert Panel on Integrated Guidelines for Cardiovascular Health and Risk Reduction in Children and Adolescents. Pediatrics 2011;128:S213 2. NCEP Expert Panel. Circulation 2004;110:227 Current Interpretive Data was last revised on 2018. HDL 56 >=40 mg/dL ISMAEL Comment: Interpretive Data Ages < or = 19 years Acceptable: >45 mg/dL Borderline low: 40-45 mg/dL Low: <40 mg/dL Ages > or = 20 years Desirable: >or= 60 mg/dL Low: <40 mg/dL Literature References: 1. Expert Panel on Integrated Guidelines for Cardiovascular Health and Risk Reduction in Children and Adolescents. Pediatrics 2011;128:S213 2. NCEP Expert Panel. Circulation 2004;110:227 Current Interpretive Data was last revised on 2018. LDL, calculated 149(H) <=129 mg/dL ISMAEL JOSÉ Comment: Interpretive Data Ages < or = 19 years Acceptable: <110 mg/dL Borderline high: 110-129 mg/dL High: >or= 130 mg/dL Ages > or = 20 years Optimal: <100 mg/dL Near optimal: 100-129 mg/dL Borderline high: 130-159 mg/dL High: >160 mg/dL Calculated using the Calvin LDL-C estimating equation. This equation was implemented on 2024. Prior to this date LDL-C was estimated using the Friedewald equation. Literature References: 1. Expert Panel on Integrated Guidelines for Cardiovascular Health and Risk Reduction in Children and Adolescents. Pediatrics 2011;128:S213 2. NCEP Expert Panel. Circulation 2004;110:227 3. Calvin Martinez et al. LYNDA Cardiol. 2019December 28;5(5):540-548. doi: 10.1001/jamacardio.2020.0013 Current Interpretive Data was last revised on 2024. Non-HDL Cholesterol 162 mg/dL ISMAEL JOSÉ Comment: Interpretive Data Ages < or = 19 years Acceptable: <120 mg/dL Borderline high: 120-144 mg/dL High: >145 mg/dL Ages > or = 20 years When triglycerides are >200 mg/dL, Non-HDL cholesterol is a secondary target of therapy with treatment goals that are 30 mg/dL greater than the LDL cholesterol target. Literature References: 1. Expert Panel on Integrated Guidelines for Cardiovascular Health and Risk Reduction in Children and Adolescents. Pediatrics 2011;128:S213 2. NCEP Expert Panel. Circulation 2004;110:227 Current Interpretive Data was last revised on 2018. Chol/HDL ratio 4 ISMAEL JOSÉ Blood 02/24/2025 10:3 1 AM CDT 02/24/2025 10:38 AM CDT Letty Vallejo MD LAB BLOOD ORDERABLES Final Result ISMAEL JOSÉ [address] [place] [address] * Basic metabolic panel (02/24/2025 10:31 AM CDT) [facility] Sodium 140 135 - 145 mmol/L Potassium, pl 4.1 3.3 - 4.9 mmol/L [facility] Chloride 106 97 - 110 mmol/L [facility] CO2 23 22 - 32 mmol/L [facility] Anion gap 11 2 - 15 mmol/L [facility] BUN 18 6 - 25 mg/dL [facility] Creatinine 0.84 0.60 - 1.10 mg/dL [facility] Glucose 91 70 - 199 mg/dL [facility] Comment: Interpretive Data Fasting glucose >/= 126 mg/dl is diagnostic for diabetes. Fasting is defined as no caloric intake for at least 8 hours. Fasting glucose between 100 mg/dl to 125 mg/dl is diagnostic of prediabetes. In a patient with classic symptoms of hyperglycemia or hyperglycemic crisis, a random glucose >/= 200 mg/dl is diagnostic for diabetes. In the absence of unequivocal hyperglycemia, results should be confirmed by repeat testing. The classification and Diagnosis of Diabetes Diabetes Care 202; 46: S19-S40. Current interpretive data was last revised 2022. Calcium 9.3 8.5 - 10.3 mg/dL [facility] Blood 02/24/2025 10:3 1 AM CDT 02/24/2025 10:38 AM CDT Letty Vallejo MD LAB BLOOD ORDERABLES Final Result ISMAEL [address] [place] [address] * Hepatitis C antibody Blood (03/16/2024 9:49 AM CDT) [facility] Hep C Ab Nonreactive Nonreactive Comment: Antibodies to HCV not detected. Does NOT exclude the possibility of recent exposure to HCV. Current interpretive data was last revised on 22 Interpretive Data Nonreactive: Antibodies to HCV not detected. Does NOT exclude the possibility of recent exposure to HCV. Equivocal: Equivocal for HCV antibodies. Supplemental molecular testing will be automatically performed to determine infection status in accordance with current CDC screening recommendations. Reactive: Positive for HCV antibodies. This may represent current or past HCV infection. Supplemental molecular testing will be automatically performed to determine current infection status in accordance with current CDC screening recommendations. Interpretive data was last revised on 2019. Blood 03/16/2024 9:49 AM CDT 03/16/2024 9:58 AM CDT Letty Vallejo MD LAB MICROBIOLOGY - GENERAL ORDERABLES Final Result ISMAEL [address] [place] [address] * Screening Mammogram Bilateral W Erik (09/17/2023 7:30 AM ENVIRONMENTAL LABORATORY TECHNICIAN) Anatomical Region Laterality Modality Breast Bilateral Mammography Impressions 09/17/2023 8:12 AM ENVIRONMENTAL LABORATORY TECHNICIAN BI-RADS ATLAS category (overall): 1 - Negative There is no mammographic evidence of malignancy. A 1 year screening mammogram is recommended. The patient has been or will be contacted. We recommend annual screening mammography for women at average risk of breast cancer beginning at age 40, based on guidelines of the [employer] (ACR Practice Parameter for the Performance of Screening and Diagnostic Mammography) and [employer]. For women with and elevated risk of breast cancer, please refer to the ACR Practice Parameter for specific screening recommendations. The patient will be entered into a reminder system with a target due date of 1 year for her next screening exam. Narrative 09/17/2023 8:12 AM ENVIRONMENTAL LABORATORY TECHNICIAN Screening Mammogram Bilateral W Erik: 09/17/23 The study was acquired using full field digital technology and interpreted from soft copy. 2D digital mammographic views, as well as 3D digital tomosynthesis were performed in the CC and MLO projections. CLINICAL: Screening mammogram, encounter for. No relevant medical history has been documented for this patient. History of breast cancer in Neg Hx. COMPARISONS: 10/27/2022 Diagnostic Mammogram Right W Erik 08/15/2022 Screening Mammogram Bilateral W Erik 08/11/2021 Screening Mammogram 09/03/2018 Breast Imaging Screening Outside Reference BREAST TISSUE: The breasts have scattered areas of fibroglandular density. FINDINGS: No suspicious masses, suspicious calcifications, or other suspicious findings are seen within either breast. There has been no suspicious change. us Self Screening Mammogram IMG MAMMO PROCEDURES Fi nal Result * (ABNORMAL) COLONOSCOPY (05/08/2022) Scribed Colonoscopy Abnormal Comment:Dr Delgado Historical Provider HEALTH MAINTENANCE Final Result * Genital fluid pap smear, thin prep with HPV evaluation (07/04/2021) 07/04/2021 Historical Provider LAB CYTOLOGY ORDERABLES F inal Result from Last 3 Months or Most Recently Relevant to Health Maintenance Insurance [facility] [employer] [facility] Care Teams Shoe Shanker Relationship Specialty Start Date End Date Letty Vallejo MD [facility] [place] [address] PCP - General 11/02/19 Ender Palacios MD [address] [facility] [place] [address] Consulting Physician Plastic Surgery 12/12/21
--- OUTSIDE RECORDS SUMMARY | 2025-03-09 17:24 | XMS_ITS | Data Portability ---
Author Organization [facility] [employer], Main Office Address [address] [place] [address] Assessment Encounter Date Assessment Date Assessment LastModified by Organization Details LastModified Time 11/10/2022 11/10/2022 patient with 9 mm mass with low suspicion for malignancy on the right breast. Will schedule for ultrasound-gu ided biopsy. Patient will follow-up after pathology results [email or web address] Not available 11/10/2022 11:20:33 Plan of Treatment Reminders Order Date Submit Date Provider Last Modified By Organization Details Last Modified Time Details Appointments None record ed. Lab None record ed. Referral None record ed. Procedures None record ed. Surgeries None record ed. Imaging None record ed. Medication Orders None record ed. Patient TargetsNo targets recorded. Patient InstructionsNo instructions recorded. Reason for Referral None Reported. Results Created Date Observation Date Name Description Value Unit Range Abnormal Flag Note LastModifiedBy Organization Detail LastModifiedTime 11/24/1911/23/2022 PROTI ME W/INR protime 10.7 secon ds 9.5-11 .5 Not Available [facility] (Lab) [address] [place], [address], 11/23/2022 18:10:32 11/24/19 23 11/23/2022 PROTI ME W/INR INR 1.0 INR INDIC ATION S 2.0 - 3.0 PROPH YLAXI S: VENOU S THROM BOSIS (HIGH RISK SURGE RY) AND SYSTE RAFAT EMBOL ISM (TISS UE HEART VALVE S, AMI VALVU LAR HEART DISEA SE AND ATRIA L FIBRI LLATI ON). TREAT MENT: VENOU S THROM BOSIS AND PULMO NARY EMBOL ISM BILEA FLET MECHA NICAL VALVE S IN AORTI C POSIT ION. 2.5 - 3.5 MECHA NICAL PROST HETIC HEART VALVE S (TILT ING DISK VALVE S AND BILEA FLET MECHA NICAL VALVE S IN CHANDU L POSIT ION). PREVE NTION OF RECUR RENT MYOCA RDIAL INFAR CTION . ANTIP HOSPH OLIPI D SYNDR OME. Not Available [facility] (Lab) [address] [place], [address], 11/23/2022 18:10:32 11/24/19 23 11/23/2022 APTT APTT 27.3 secon ds 23.4-3 1.4 PLEAS E NOTE NEW APTT REFER ENCE RANGE EFFEC TIVE 08/17 . Not Available [facility] (Lab) [address] [place], [address], 11/23/2022 18:10:36 11/24/19 23 11/23/2022 CBC W/O DIFFE RENTI AL white blood cells 7.2 x10'3 /uL 4.2-10 .8 Not Available [facility] (Lab) [address] [place], [address], 11/23/2022 18:23:07 11/24/19 23 11/23/2022 CBC W/O DIFFE RENTI AL red blood cells 4.63 x10'6 /uL 3.80-5 .20 Not Available [facility] (Lab) [address] [place], [address], 11/23/2022 18:23:07 11/24/19 23 11/23/2022 CBC W/O DIFFE RENTI AL hemoglobin 12.2 g/dL 12.0-1 5.6 Not Available [facility] (Lab) [address] [place], [address], 11/23/2022 18:23:07 11/24/19 23 11/23/2022 CBC W/O DIFFE RENTI AL hematocrit 39.0 % 35.7-4 5.7 Not Available [facility] (Lab) [address] [place], [address], 11/23/2022 18:23:07 11/24/19 23 11/23/2022 CBC W/O DIFFE RENTI AL mean red cell volume 84.2 fL 82.0-9 9.0 Not Available [facility] (Lab) [address] [place], [address], 11/23/2022 18:23:07 11/24/19 23 11/23/2022 CBC W/O DIFFE RENTI AL mean red cell hemoglobin 26.3 pg 27.0-3 3.0 low Not Available [facility] (Lab) [address] [place], [address], 11/23/2022 18:23:07 11/24/19 23 11/23/2022 CBC W/O DIFFE RENTI AL mean RBC HGB concentratio n 31.3 g/dL 31.0-3 6.0 Not Available [facility] (Lab) [address] [place], [address], 11/23/2022 18:23:07 11/24/19 23 11/23/2022 CBC W/O DIFFE RENTI AL red cell distribution width 14.9 % 11.8-1 5.5 Not Available [facility] (Lab) [address] [place], [address], 11/23/2022 18:23:07 11/24/19 23 11/23/2022 CBC W/O DIFFE RENTI AL platelets 494 x10'3 /uL 150-40 0 high Not Available [facility] (Lab) [address] [place], [address], 11/23/2022 18:23:07 11/24/19 23 11/23/2022 CBC W/O DIFFE RENTI AL mean platelet volume 10.0 fL 9.0-12 .4 Not Available [facility] (Lab) [address] [place], [address], 11/23/2022 18:23:07 11/27/19 23 11/26/2022 US, breas t, limit ed [facility] [address], [place] [address] [phone] [facility] Name: VIR[place]IA W[place] Access ion #: [id number] Sex: F : 1964 9 4 Locati on: RAD Attend ing Physic viridiana: PAMELLA SANTOS O Orderi ng Physic viridiana: PAMELLA SANTOS Exam Date: 023 12:10 PM Exam Name: US BREAST LIMITE D RT Admitt ing Diagno sis(es ): RADIOL OGY REPORT - FINAL EXAM: US BREAST LIMITE D RT HISTOR Y: right breast mass 57-yea r-old female with right breast nodule . COMPAR MELANY: Bilate ral mammog lavell dated 2021; right diagno stic mammog kevin dated 2022; right breast ultras ound examin ation dated 2022. All compar melany films are from an outsid e instit ution. TECHNI QUE: Focuse d ultras ound evalua tion of the right upper outer breast was perfor med. FINDIN GS: No suspic ious solid masses or domina nt cystic lesion s are identi fied about the right upper outer breast , despit e extens brian sonogr aphic interr ogatio n. There is a backgr ound parenc hymal patter n of fibroc ystic change . Page 1 of 2 [facility] Yonatan elena Name: VIRGINIA WASHINGTON Access ion #: [id number] Sex: F : 1964 9 4 Exam Date: 023 12:10 PM Exam Name: US BREAST LIMITE D RT Admitt ing Diagno sis(es ): IMPRES VINCE: BIRADS 2: Assess ment comple te. Benign findin gs. Findin gs are consis tent with fibroc ystic diseas e, and there are no worris ome masses that beba t biopsy or short interv al follow -up at this time. Recomm end return ing to annual screen ing mammog lavell Dece er 2021. I person prosper del rio sed these findin gs and recomm endati ons with the patien kassy mick ately follow ing the examin ation. Create d and electr onical ly signed by: Cuate ulrich MD Signed Date: 12:19 PM (CT) Dictat ed by: Cuate ulrich MD DD: 12:19 PM (CT) DT: 12:19 PM (CT) Page [address] of [address] (Imaging) [address] [place], [address], 11/26/2022 13:27:53 11/27/19 23 11/26/2022 imagi ng/di acos laine hunter t No observ ation record ed. [address] [place], [address], 11/27/2022 11:55:14 Result Notes None recorded. Problems Name Problem SNOMED Code Status Onset Date Resolution Date Notes Provider Name and Address Organization Details Recorded Time Breast lump [id number] Active 023 Santino marquis MD [address] [facility], [facility] [address], [place], [address] , [facility] [employer] [facility] 11/10/2022 14:07:18 Problem Notes None recorded. Medical Equipment None Reported. Allergies No known drug allergies Medications Name Sig Start Date Stop Date Status Note LastModified by Organization Details LastModified Time metronidazol e 500 mg tablet TAKE 1 TABLET BY MOUTH TWICE A DAY FOR 7 DAYS active Not Available Not Available No t Available amlodipine 5 mg tablet TAKE 1 TABLET (5 MG TOTAL) BY MOUTH DAILY. active Not Available Not Available No t Available amlodipine 10 mg tablet TAKE 1 TABLET BY MOUTH EVERY DAY active Not Available Not Available No t Available triamcinolon e acetonide 0.1 % topical ointment APPLY 1 APPLICATION TOPICALLY 2 (TWO) TIMES A DAY APPLY TOPICALLY TO SCALP ONCE DAILY active Not Available Not Available N ot Available lidocaine 5 % topical patch PLACE 1 PATCH ONTO THE SKIN DAILY TO PAINFUL AREA 12 HOURS PER DAY, REMOVE FOR 12 HOURS active Not Available Not Available No t Available ergocalcifer ol (vitamin D2) 1,250 mcg (50,000 unit) capsule TAKE 1 CAPSULE BY MOUTH ONE TIME PER WEEK active Not Available Not Available No t Available diazepam 5 mg tablet TAKE 1 TABLET BY MOUTH EVERY 8 HOURS NEEDED FOR MUSCLE SPASMS active Not Available Not Available No t Available escitalopram 10 mg tablet TAKE 1 TABLET BY MOUTH EVERY DAY active Not Available Not Available No t Available metoprolol tartrate 25 mg tablet TAKE 1/2 TABLET BY MOUTH EVERY DAY active Not Available Not Available No t Available Vitals Date Recorded Body height Body mass index (BMI) Body weight Respiratory rate Heart rate Body temperature Oxygen saturation Oxygen saturation in Arterial blood by Pulse oximetry Systolic And Diastolic Provider Name and Address Organization Details Last Updated DateTime 3 157.48 cm 38 kg/m2 36295.2 1 g 14 /min 89 /min 97.1 [degF] 97 % 97 % 130/88 mm[Hg] Leola Adame [facility] 3 10:37:42 Social History None recorded. Functional Status None recorded. Mental Status None recorded. Family History Relationship Description Onset Age of this Age Resolved Age Notes LastModified by Organization Details LastModified Time Father No current problems or disability [email or web address] Not available 10:38:17 Mother No current problems or disability [email or web address] Not available 10:38:17 Medical History Condition Response ARTHRITIS Y HYPERTENSION Y Gynecological HistoryNo gynecological history recorded. Obstetrics History GPAL:G 0 P 0 0 0 0 Past Encounters Encounter ID Performer Location Encounter Start Date Encounter Closed Date Diagnosis/Indication Diagnosis SNOMED-CT Code Diagnosis ICD10 Code Diagnosis Note [id number] Santino marquis MD [facility] [place] [address] [facility], [facility] [address] [place] [address] 11/10/2022 09:44:11 11/10/2022 12:23:59 Breast lump 38126919 N63.0 Right Breast Health Concerns Section Related Observation LastModified by Organization Detai ls LastModified Time None Recorded Concern Status LastModified by Organization Details LastModified Time None Recorded Advance Directives Directive None Recorded Payers Insurance Date Sequence Insurance Name Policy Number Policy Martinez Covered Member ID Martinez Member ID Guarantor Name 12/31/2022 2 [employer] [facility] ON OR AFTER 07/30/2020 (MEDICAID REPLACEMENT - HMO) Virginia Doshi Evin [id number] Virginia Doshi Evin 12/31/2022 1 [facility] [id number] Virginia Doshi Evin [id number] Virginia Doshi Evin Notes Date Note Type Note Provider Name and Address Organization Details Recorded Time 11/10/2022 text/html patient with abnormal mammogram recently. Here for evaluation. She states she gets mammograms yearly has had no issues. Denies any previous biopsies. Denies any family history of breast pathology or cancer. Denies any breast pain or nipple discharge Santino Hansen MD [address] [place] [address], [place] [address], [place], [address], [facility] 11/10/2022 14:07:51 OBGyn Episode No OBEpisode recorded.
--- OUTSIDE RECORDS SUMMARY | 2025-03-09 17:24 | XMS_ITS | Encounter Summary ---
Author Organization [facility] Care Team Providers Care Sap Integration Architect Name Role Phone Letty Vallejo MD Primary Care Provider [phone] Ender Palacios MD Unavailable [phone] Steffen Macias PT Unavailable [phone] Encounter Details Date Type Department Care Team (Latest Contact Info) Description 10/07/2018 Orders Only [facility] CLINCONV ProviderLula MD [address] [place] [id number] Social History Tobacco Use Types Packs/Day Years Used Date Smoking Tobacco: Never Assessed Comments Unknown Sex and Gender Information Value Date Recorded Sex Assigned at Not on file Legal Sex Female 2:41 AM ITINERANT TEACHER ASSISTANT Gender Identity Female 06/18/2021 7:49 PM CDT Sexual Orientation Straight 06/18/2021 7: 49 PM CDT documented as of this encounter Plan of Treatment Not on file documented as of this encounter Procedures Procedure Name Priority Date/Time Associated Diagnosis Comments SCAN - LABS 10/10/2018 12:00 AM ITINERANT TEACHER ASSISTANT documented in this encounter Results * SCAN - LABS (10/10/2018 12:00 AM ITINERANT TEACHER ASSISTANT) Narrative 10/10/2018 12:00 AM ITINERANT TEACHER ASSISTANT Ordered by an unspecified provider. Historical Provider Final Res ult documented in this encounter Visit Diagnoses Not on filedocumented in this encounter Care Teams Sap Integration Architect Relationship Specialty Start Date End Date Letty Vallejo MD [address] [facility] [address] [place] [address] [place] [address] PCP - General 11/02/19 Ender Palacios MD [address] [facility] [address] [place] [address] [place] [address] Consulting Physician Plastic Surgery 12/12/21 [place] [address] [place] [address] Physical Therapist Physical Therapy 04/24/23 04/24/23 documented as of this encounter
--- OUTSIDE RECORDS SUMMARY | 2025-03-09 17:24 | XMS_ITS | Clinical Summary ---
Author Organization [facility] Address [address] [place] [address] Care Team Providers Care Recycle Worker Name Role Phone Letty Vallejo MD Primary Care Provider [phone] Allergies No known active allergies Medications vitamin D2, ergocalciferol, [address]47 UNITS capsule Take 50,000 Units by mouth weekly. 01/01/2021 Active Ascorbic Acid (VITAMIN C OR) Take 1 tablet by mouth daily. Active multi vitamin/mineral s tablet Take 1 tablet by mouth daily. Active BONE STIMULATOR, DME,Indications :Spinal stenosis of cervical region Wear 4 hours per day post op 1 Device 03/14/2021 Active Multiple Vitamins-Minera ls (HAIR SKIN NAILS OR) Take 2 tablets by mouth daily. Active Calcium-Vitamin D-Vitamin K ([facility] CALCIUM SOFT CHEWS OR) Take 1,200 mg by mouth. Active triamcinolone 0.1 % ointment 09/05/2021 Acti ve metoprolol tartrate 25 MG tablet Take 0.5 tablets (12.5 mg total) by mouth daily. 15 tablet 10/29/2021 Active diazePAM (VALIUM) 5 MG tabletIndicatio ns:Cervical paraspinal muscle spasm Take 1 tablet (5 mg total) by mouth every 8 (eight) hours as needed for Muscle Spasms. 9 tablet 09/05/2022 Active amLODIPine (NORVASC) 5 MG tablet Take 1 tablet (5 mg total) by mouth daily. 30 tablet 09/08/2022 Active lidocaine (LIDO LIVAN) 4 % patch Place 1 patch onto the skin daily. Remove & Discard patch within 12 hours or as directed by 30 patch 12/10/2022 Active Active Problems Problem Noted Date Diagnosed Date Palpitations 07/17/2021 Assessment & Plan (07/17/2021 9:33 AM NATIONAL SERVICE OFFICER): She has not been having any recent palpitation symptoms. I recommend discontinuing phentermine. I discussed a Holter monitor for further evaluation of her symptoms, but since she is not having any she has declined. I told her that she could take metoprolol if she wanted, but it was not necessary. S/P cervical spinal fusion 05/30/2021 Cervical spine instability 05/30/2021 Radiculopathy, cervical region 02/17/2021 Foraminal stenosis of cervical region 02/17/2021 Other cervical disc displace ment, unspecified cervical region 02/17/2021 Other cervical disc degenera tion, unspecified cervical region 02/17/2021 Spinal stenosis of cervical region 02/17/2021 Cervical transverse process fracture (CMS/HCC HH S/HCC) 02/01/2021 Precordial chest pain 11/19/2020 Overview (07/17/2021): Last Assessment & Plan: The patient had atypical chest pain. She had negative workup for cardiac cause. Patient does not have risk factors except for overweight. Patient was advised strongly to call us back or go to the emergency room for recurrent chest pain. Assessment & Plan (07/17/2021 9:33 AM NATIONAL SERVICE OFFICER): Her chest pain sounds noncardiac in nature. I recommended an echocardiogram for further evaluation. At this time, I do not think that she requires stress testing. Anxiety with somatization 11/01/2020 Dizziness due to old head injury 11/01/2020 Elevated cholesterol 09/22/2018 Vitamin D deficiency 09/22/2018 Obesity 12/06/2015 Assessment & Plan (07/17/2021 9:34 AM NATIONAL SERVICE OFFICER): Pending her echocardiogram, we can discuss lifestyle modifications. Immunizations Immunization Administration Dates Next Due Tdap (Boostrix) 02/02/2021 Family History Medical History Relation Comments Diabetes Brother 5 Arthritis Daughter arthritis affect ing her eyes [id number] No Known Problems Father Anemia Mother Stroke Paternal Grandmother heart murmur, grew out of Son Relation Status Comments Brother 1 Alive Brother 2 Alive Brother 3 Alive Brother 4 Alive Brother 5 Alive Daughter Alive Father Mother Alive Paternal Grandmother (Age 110) Sister 1 Alive Sister 2 Alive Sister 3 Alive Sister 4 Alive Sister 5 Alive Sister 6 Alive Sister 7 Alive Son Alive Social History Tobacco Use Types Packs/Day Years Used Date Smoking Tobacco: Former Cigarettes Smokeless Tobacco: Never Tobacco Cessation:Counseling Given: Yes Alcohol Use Standard Drinks/Week Comments Yes 1 (1 standard drink = 0.6 oz pure alcohol) Drinks occassionally socially a drink every 2 months or so PHQ-2 Answer Date Recorded Patient Health Questionnaire-2 Score 1 10/08/2022 Comments No Sex and Gender Information Value Date Recorded Sex Assigned at Not on file Legal Sex Female 6:07 PM CDT Gender Identity Not on file Sexual Orientation Not on file 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 Not on file Not on file Not on file Last Filed Vital Signs Vital Sign Reading Time Taken Comments Blood Pressure 127/90 12/10/2022 8:00 AM CDT Pulse 63 12/10/2022 8:00 AM CDT Temperature 36.5 C (97.7 F) 12/10/2022 6:28 AM CDT Respiratory Rate 14 12/10/2022 8:00 AM CDT Oxygen Saturation 98% 12/10/2022 8:00 AM CDT Inhaled Oxygen Concentration - - Weight 97.7 kg (215 lb 6.2 oz) 12/10/2022 6:28 A M CDT Height 157.5 cm (5' 2) 12/10/2022 6:28 AM CDT Body Mass Index 39.4 12/10/2022 6:28 AM CDT Plan of Treatment Health Maintenance Due Date Last Done Comments Colorectal Cancer Screening Colonoscopy (10 Years) 1967 Annual Physical 1970 Hepatitis C 1985 Hepatitis B Vaccines (1 of 3 - 19+ 3-dose series) 1986 Pneumococcal Vaccine: 50+ Years (1 of 1 - PCV) 2017 Zoster Vaccines (1 of 2) 2017 Mammogram Screening 08/11/2023 08/11/2021, 09/03/2018 COVID-19 Vaccine (3 - 2023-2 5 season) 2024 11/23/2020, 11/02/2020 DTaP, Tdap and Td Vaccines ( 2 - Td or Tdap) 02/02/2031 02/02/2021 Meningococcal B Vaccine Aged Out No l onger eligible based on patient's age to complete this topic Meningococcal Vaccine Aged Out No pilar iman eligible based on patient's age to complete this topic RSV Immunizations Under 20 Months Aged Out No longer eligible b ased on patient's age to complete this topic Goals Goal Patient Goal Type Associated Problems Recent Progress Patient-Stated? Author Safety - demonstrates understanding of home safety measures General Tigist Will RN Safety - demonstrates understanding of home safety measures General Tigist Will RN Medical Devices Implanted Type Area Track Dresser Device Identifier Shelf Expiration Date Model / Serial / Lot [place] 2 Level 42mm Plate Implanted:Qty : 1 on 05/29/2021 by Dion Blas MD at [facility] Plate N/A: Spine Cervical [employer] DIV [employer] NITISH [id number] / / Description:C4-6 St Variable Screw Implanted:Qty : 6 on 05/29/2021 by Dion Blas MD at [facility] Screw N/A: Spine Cervical [employer] - DIV [employer] NITISH [id number] / / Description:C4-6 Bio4 Viable Bone Matrix-Spine Implanted:Qty : 1 on 05/29/2021 by Dion Blas MD at [facility] N/A: Spine Cervical [employer] 01/19/2024 [id number] / [id number] / [id number] Description:C4-5, C5-6 [place] Cervical Interbody Implanted:Qty : 1 on 05/29/2021 by Dion Blas MD at [facility] N/A: Spine Cervical [id number] 10/18/2025 [id number] / / [id number] Description:K2M C5-6 SPACE [place] Cervical Interbody Implanted:Qty : 1 on 05/29/2021 by Dion Blas MD at [facility] N/A: Spine Cervical 03/17/2025 [id number] / / [id number] Description:K2M C4-5 Explanted Type Area Track Dresser Device Identifier Shelf Expiration Date Model / Serial / Lot Distration Pin 12mm - [id number] Explanted:Qty: 2 on 05/29/2021 at [facility] Pin [employer] [id number] / / Procedures Procedure Name Priority Date/Time Associated Diagnosis Comments MG SCREENING W OCTAVIANO DAI DIGI Routine 08/11/2021 11:26 AM NATIONAL SERVICE OFFICER Encounter for screening mammogram for malignant neoplasm of breast from Last 3 Months or Most Recently Relevant to Health Maintenance Results * MG SCREENING W OCTAVIANO ADI DIGI (08/11/2021 11:26 AM NATIONAL SERVICE OFFICER) Anatomical Region Laterality Modality Breast Bilateral Mammography 08/11/2021 2:31 PM NATIONAL SERVICE OFFICER Impressions 08/11/2021 2:32 PM NATIONAL SERVICE OFFICER =====IMPRESSION:===== No mammographic findings suggestive of malignancy ASSESSMENT: ACR BI-RADS 2 - BENIGN FINDING(S) Recommendation: 1: Routine Screening Bilateral COMMENTS: Ordered By: WILMAR MELO Interpreted By: Milton Edwards MD, 08/11/2021 2:31 PM Narrative 08/11/2021 2:32 PM NATIONAL SERVICE OFFICER EXAMINATION: Digital bilateral screening mammogram with 3-D tomosynthesis EXAM DATE/TIME: 08/11/2021 11:07 AM REASON FOR EXAM: SCREENING COMPARISON: August 2018, April 2017 TECHNIQUE: Digital screening mammography of both breasts was performed in addition to 3-D Tomosynthesis technique. This study was read with the assistance of a computer-aided detection system. TISSUE DENSITY: There are scattered areas of fibroglandular density. FINDINGS: No suspicious masses, malignant appearing calcifications, skin thickening or other abnormalities are present. No significant change from the prior exam. Wilmar Melo MD MAMMO Final Result from Last 3 Months or Most Recently Relevant to Health Maintenance Insurance [facility] Advance Directives Documents on File Type Date Recorded Patient Director Client Expl anation Legal Documents 01/08/2023 3:06 PM BILLING REQ FOR NATIONAL RECORD RETRIEVAL DOS 12/09/22 TO 01/06/23 CHRISTOPHER Legal Documents 03/25/2021 1:02 PM RECVD & CMPLTD ATTY REQ. FOR HB BILLS FOR CHRISTOPHER FOR AUTOMATED RECORDS * Full Code (Latest Code Status on File) Date Activated Date Inactivated Comments 05/29/2021 5:39 PM 05/30/2021 3:38 PM * Full Code Date Activated Date Inactivated Comments 02/02/2021 2:00 AM 02/03/2021 2:57 PM Care Teams Recycle Worker Relationship Specialty Start Date End Date Letty Vallejo MD [address] [place] [address] PCP - General 03/07/16
--- OUTSIDE RECORDS SUMMARY | 2025-03-09 17:24 | XMS_ITS | Encounter Summary ---
Author Organization [facility] Care Team Providers Care Ham Clerk Name Role Phone Letty Vallejo MD Primary Care Provider [phone] Ender Palacios MD Unavailable [phone] Steffen Macias PT Unavailable [phone] Encounter Details Date Type Department Care Team (Latest Contact Info) Description 12/06/2015 Orders Only [facility] CLINCONV ProviderLula MD [address] [place] [id number] Social History Tobacco Use Types Packs/Day Years Used Date Smoking Tobacco: Never Assessed Comments Unknown Sex and Gender Information Value Date Recorded Sex Assigned at Not on file Legal Sex Female 2:41 AM FUR FEEDER Gender Identity Female 06/18/2021 7:49 PM CDT Sexual Orientation Straight 06/18/2021 7: 49 PM CDT documented as of this encounter Plan of Treatment Not on file documented as of this encounter Procedures Procedure Name Priority Date/Time Associated Diagnosis Comments SCAN - LABS 12/19/2015 12:00 AM CDT documented in this encounter Results * SCAN - LABS (12/19/2015 12:00 AM CDT) Narrative 12/19/2015 12:00 AM CDT Ordered by an unspecified provider. us Historical Provider Final Res ult documented in this encounter Visit Diagnoses Not on filedocumented in this encounter Care Teams Ham Clerk Relationship Specialty Start Date End Date Letty Vallejo MD [address] [place] [address] [place] [id number] PCP - General 11/02/19 Ender Palacios MD [address] [place] [address] [place] [id number] Consulting Physician Plastic Surgery 12/12/21 [place] [address] [place] [address] Physical Therapist Physical Therapy 04/24/23 04/24/23 documented as of this encounter
--- OUTSIDE RECORDS SUMMARY | 2025-03-09 17:24 | XMS_ITS | Data Portability ---
Author Organization [employer] , [facility] Address [address] [place] [address] Assessment No assessment recorded. Plan of Treatment Reminders Order Date Submit Date Provider Last Modified By Organization Details Last Modified Time Details Appointments None recorded. Lab HPV E6+E7 mRNA, qualitative PCR, cervix 2024 025 [facility], [address] [place], [address], 5 16:10:18 pap, LB 2024 025 [facility], [address] [place], [address], 5 12:36:10 STI panel 2021 022 [facility], [address] [place], [address], 2 11:33:58 HIV 1+2 Ab + HIV1 p24 Ag, quantitativ e immunoassay , serum 2021 022 [facility], [address] [place], [address], 2 15:50:02 HBsAg (hepatitis B surface Ag), serum 2021 022 [facility], [address] [place], [address], 2 15:50:01 hepatitis C virus Ab, serum 2021 022 [facility], [address] [facility], [place], [address], 15:50:01 RPR (rapid plasma reagin), serum 2021 [facility], [address] [place], [address], 15:50:02 pap, LB 2021 [facility], [address] [facility], [place], [address], 06:24:27 HPV E6+E7 mRNA, qualitative PCR, cervix 2021 [facility], [address] [place] [address], [address], 09:06:57 Referral None recorded. Procedures None recorded. Surgeries None recorded. Imaging MAMMO, screening, digital, bilateral 2024 025 [facility], [address], [place] [address], [place], [address], 13:58:51 MAMMO, screening, digital, bilateral 2023 024 [email or web address] Not available 10:44:25 Medication Orders None recorded. Patient TargetsNo targets recorded. Patient Instructions Encounter Date Encounter Id Patient Instructions Last Modified By Organization Details Last Modified Time 04/21/2022 [id number] eating healthy foods: care instructions mikaela Not available 04/21/2022 15:57:17 general health care education mikaela Not available 04/21/2022 15:57:17 weight management education mikaela Not available 04/21/2022 15:57:17 09/17/2023 [id number] body mass index: care instructions Not available 09/17/2023 14:43:08 mammogram: about this test Not available 09/17/2023 14:43:08 10/19/2024 [id number] A healthy lifestyle: care instructions Not available 10/19/2024 14:20:11 substance use disorder: care instructions Not available 10/19/2024 14:20:12 calcium and vitamin D combination Not available 10/19/2024 14:20:12 depression (women only) Not available 10/19/2024 14:20:11 eating healthy foods: care instructions Not available 10/19/2024 14:20:12 exercise program: getting started Not available 10/19/2024 14:20:12 Reason for Referral None Reported. Results Created Date Observation Date Name Description Value Unit Range Abnormal Flag Note LastModifiedBy Organization Detail LastModifiedTime 04/21/20 22 04/21/2022 STI PANEL sti panel merged to [id number] Not Available [facility] ol [address] [place], [address], 04/22/2022 11:33:57 04/21/20 22 04/22/2022 HPV HIGH RISK HPV high risk Negati ve negati ve normal The HPV High Risk assay is inten ded for use as co-te sting with cytol ogy and not as a subst itute for regul ar cervi jaya cytol ogy scree mykel. This assay is not inten ded for use as a scree mykel devic e for women under age 30 with jalyn l cervi jaya cytol ogy. Not Available [facility] [address] [place], [address], 04/23/2022 09:06:57 04/21/20 22 04/23/2022 STI PANEL trichomonas vaginalis TRICH neg negati ve normal Not Available [facility] [address] [place], [address], 04/23/2022 17:47:00 04/21/20 22 04/23/2022 STI PANEL chlamydia trachomatis CT neg negati ve normal This repor t is inten ded for us in clini jaya monit oring and manag ement of patie nts. It is not inten ded for use in medic al-le gal appli catio n. Not Available [facility] [address] [place], [address], 04/23/2022 17:47:00 04/21/20 22 04/23/2022 STI PANEL neisseria gonorrhoeae GC neg negati ve normal This repor t is inten ded for us in clini jaya monit oring and manag ement of javier ahmadi. It is not inten ded for use in medic al-le gal appli catio n. Not Available [facility] [address] [place], [address], 04/23/2022 17:47:00 04/21/20 22 04/29/2022 THINP REP TIS PAP clinical information: normal Infor matio n not provi ded Not Available [address] [address] [place], [address], 04/29/2022 06:24:27 04/21/20 22 04/29/2022 THINP REP TIS PAP LMP: normal NONE GIVEN Not Available [facility] [address] [address] [place], [address], 04/29/2022 06:24:27 04/21/20 22 04/29/2022 THINP REP TIS PAP prev. Pap: normal NONE GIVEN Not Available [facility] [address] [address] [place], [address], 04/29/2022 06:24:27 04/21/20 22 04/29/2022 THINP REP TIS PAP prev. BX: normal NONE GIVEN Not Available [facility] [address] [address] [place], [address], 04/29/2022 06:24:27 04/21/20 22 04/29/2022 THINP REP TIS PAP source: normal Cervi x Not Available [facility] [place] [address] [place], [address], 04/29/2022 06:24:27 04/21/20 22 04/29/2022 THINP REP TIS PAP statement of adequacy: normal Satis facto ry for evalu ation . Endoc ervic al/tr ansfo rmati on zone compo nent prese nt. Age and/o r menst rual statu s not provi ded Not Available [address] [place], [address], 04/29/2022 06:24:27 04/21/20 22 04/29/2022 THINP REP TIS PAP interpretati on/result: normal Negat brian for intra epith elial lesio n or malig dayanna . Not Available [address] [place], [address], 04/29/2022 06:24:27 04/21/20 22 04/29/2022 THINP REP TIS PAP comment: normal This Pap test has been evalu ated with compu ter rich jigar techn ology . Not Available [address] [address] [place], [address], 04/29/2022 06:24:27 04/21/20 22 04/29/2022 THINP REP TIS PAP cytotechnolo gist: normal BRANDAN, CT( CP) CT scree mykel locat ion: [place] [address] [place] [address] Not Available [place] [address] [address] [place], [address], 04/29/2022 06:24:27 04/21/20 22 04/29/2022 THINP REP TIS PAP review cytotechnolo gist: normal LMT, CT( CP) CT scree mykel locat ion: [place] [address] [place] [address] Not Available [address] [place], [address], 04/29/2022 06:24:27 04/21/20 22 04/29/2022 THINP REP TIS PAP comment EXPLA NATOR Y NOTE: The Pap is a scree mykel test for cervi jaya cance r. It is not a diagn ostic test and is subje ct to false negat brian and false posit brian resul ts. It is most relia ble when a satis facto ry sampl e, regul sosa obtai wil, is submi tted with relev ant clini jaya findi ngs and histo ry, and when the Pap resul t is evalu ated along with histo lety and curre nt clini jaya infor matio n. Not Available [address] [address] [place], [address], 04/29/2022 06:24:27 04/30/20 22 05/05/2022 HEPAT ITIS B SURFA CE ANTIG EN W/REF L CONFI RM hepatitis B surface antigen NON-RE ACTIVE non-re active normal Not Available [facility] [address] [place], [address], 05/05/2022 15:50:01 04/30/20 22 05/05/2022 HEPAT ITIS C AB W/REF L TO HCV RNA, QN, PCR hepatitis C antibody NON-RE ACTIVE non-re active normal Not Available [facility] [address], [address], 05/05/2022 15:50:01 04/30/20 22 05/05/2022 HEPAT ITIS C AB W/REF L TO HCV RNA, QN, PCR index 0.07 <1.00 normal HCV antib sari was non-r eacti ve. There is no labor atory evide nce of HCV infec tion. In most cases , no furth er actio n is requi red. Howev er, if recen t HCV expos ure is suspe cted, a test for HCV RNA (test code 18993 ) is sugge sted. For addit ional infor matio n pleas e refer to http: //[facility] kristopher ramos.que stdia gnost ics.c om/fa q/FAQ 22v1 (This link is being provi ded for infor mattiffanie nal/ educa kylee l purpo ses only. ) Not Available [facility] [address] [address], [place], [address], 05/05/2022 15:50:01 04/30/20 22 05/05/2022 HIV 1/2 ANTIG EN/AN TIBOD Y,FOU RTH GENER ATION W/RFL HIV Ag/Ab, 4TH gen NON-RE ACTIVE non-re active normal HIV-1 antig en and HIV-1 /HIV- 2 antib odies were not detec jigar. There is no labor atory evide nce of HIV infec tion. PLEAS E NOTE: This infor matio n has been discl osed to you from recor ds whose confi denti ality may be prote cted by state law. If your state requi res such prote ction , then the state law prohi bits you from gita talbot er discl osure of the infor matio n witho ut the speci fic writt en conse nt of the perso n to whom it perta ins, or as other rodriguez permi tted by law. A gener al autho rizat ion for the relea se of medic al or other infor matio n is NOT suffi cient for this purpo se. For addit ional infor matio n pleas e refer to http: //[facility] kristopher ramos.flory stdia gnost ics.c om/fa q/FAQ 106 (This link is being provi ded for infor matio nal/ educa kylee l purpo ses only. ) The perfo rmanc e of this assay has not been clini ericka valid ated in patie nts less than 2 years old. Not Available [facility] [address] [address], [place], [address], 05/05/2022 15:50:02 04/30/20 22 05/05/2022 RPR (DX) W/REF L TITER AND CONFI RMATO RY TESTI NG RPR (DX) w/refl titer and confirmatory testing NON-RE ACTIVE non-re active normal Not Available [facility] [address] [address], [place], [address], 05/05/2022 15:50:02 10/19/19 25 10/23/2024 HPV HIGH RISK HPV high risk Negati ve negati ve normal The HPV High Risk assay is inten ded for use as co-te sting with cytol ogy and not as a subst itute for regul ar cervi jaya cytol ogy scree mykel. This assay is not inten ded for use as a scree mykel devic e for women under age 30 with jalyn l cervi jaya cytol ogy. Not Available [facility] [address] [place], [address], 10/23/2024 16:10:18 10/19/1910/24/2024 THINP REP TIS PAP clinical information: normal None given Not Available [facility] [place] [address] [place], [address], 10/24/2024 12:36:10 10/19/19 25 10/24/2024 THINP REP TIS PAP LMP: normal NONE GIVEN Not Available [address] [place] [address] [place], [address], 10/24/2024 12:36:10 10/19/19 25 10/24/2024 THINP REP TIS PAP prev. Pap: normal NONE GIVEN Not Available [address] [address] [place], [address], 10/24/2024 12:36:10 10/19/19 25 10/24/2024 THINP REP TIS PAP prev. BX: normal NONE GIVEN Not Available [facility] [address] [address] [place], [address], 10/24/2024 12:36:10 10/19/1910/24/2024 THINP REP TIS PAP source: normal Cervi x Not Available [address] [address] [place], [address], 10/24/2024 12:36:10 10/19/19 25 10/24/2024 THINP REP TIS PAP statement of adequacy: normal Satis facto ry for evalu ation . Endoc ervic al/tr ansfo rmati on zone compo nent prese nt. Age and/o r menst rual statu s not provi ded Not Available [address] [place], [address], 10/24/2024 12:36:10 10/19/19 25 10/24/2024 THINP REP TIS PAP interpretati on/result: normal Cytol ogy Resul ts: Negat brian for intra epith elial lesio n or malig dayanna . Not Available [address] [place], [address], 10/24/2024 12:36:10 10/19/19 25 10/24/2024 THINP REP TIS PAP infection: normal Shift in vagin al jose sugge stive of bacte rial vagin osis. Not Available [address] [place], [address], 10/24/2024 12:36:10 10/19/19 25 10/24/2024 THINP REP TIS PAP comment: normal This Pap test has been evalu ated with compu ter rich jigar techn ology . Not Available [address] [place], [address], 10/24/2024 12:36:10 10/19/19 25 10/24/2024 THINP REP TIS PAP cytotechnolo gist: normal JAF, CT( CP) CT Scree mykel Locat ion: [address] [place] [address] [place] [address] Not Available [address], [address], 10/24/2024 12:36:10 10/19/19 25 10/24/2024 THINP REP TIS PAP review cytotechnolo gist: normal KMS, CT( CP) CT Scree mykel locat ion: [place] [address] [place] [address] Not Available [facility] [address] [place], [address], 10/24/2024 12:36:10 10/19/19 25 10/24/2024 THINP REP TIS PAP comment EXPLA NATOR Y NOTE: The Pap is a scree mykel test for cervi jaya cance r. It is not a diagn ostic test and is subje ct to false negat brian and false posit brian resul ts. It is most relia ble when a satis facto ry sampl e, regul sosa obtai wil, is submi tted with relev ant clini jaya findi ngs and histo ry, and when the Pap resul t is evalu ated along with histo lety and curre nt clini jaya infor matio n. Not Available [facility] [address] [address], [place], [address], 10/24/2024 12:36:10 10/22/19 25 10/19/2024 MAMMO , scree mykel, digit al, bilat eral No observ ation record ed. [facility] [address] [facility], [place], [address], 11/04/2024 14:36:15 10/24/19 25 10/19/2024 MAMMO , scree mykel, digit al, bilat eral No observ ation record ed. [email or web address] [facility] [address], [address], 10/31/2024 17:13:17 Result Notes Documentation Provider Name and Address Organization Details Recorded Time Mammo, Screening, Digital, Bilateral : Mammogram Mammogram Right: normal Left: normal Mammo, Screening, Digital, Bilateral : No mammographic evidence of malignancy Neetu Campbell CNM [address] [facility], [place], [address], [facility] 11/01/2024 16:32:46 Problems Name Problem SNOMED Code Status Onset Date Resolution Date Notes Provider Name and Address Organization Details Recorded Time Degenerat ion of cervical intervert ebral disc 35124433 Completed 202002/17/2021 Iraida brooke, [place] [facility] 2 12:31:25 Stenosis of intervert ebral foramina 896366231296 Completed 202002/17/2021 Iraida Wolf null, [place] [facility] 2 12:31:25 Cervical radiculop athy 27078727 Completed 202002/17/2021 Iraida Wolf null, [place] [facility] 2 12:31:25 Spinal stenosis in cervical region 01152657 Completed 202002/17/2021 Iraida Wolf null, [place] [facility] 2 12:31:25 Prolapsed cervical intervert ebral disc 966767043 Completed 202002/17/2021 Iraida Wolf null, [place] [facility] 2 12:31:25 Anxiety 08404780 Completed 202011/01/2020 Iraida Wolf null, [place] [facility] 2 12:31:25 Cervical spine instabili ty 904295468 Completed 202005/30/2021 Iraida Wolf null, [place] [facility] 2 12:31:25 Problem Notes None recorded. Procedures Surgical History Date Name Laterality Status Provider Name and Address Organization Details Recorded Time 025 Date of Last Pap Smear completed DANIEL COOK [address] [place], [address], [place] [facility] 10/24/2024 13:51:52 025 Most Recent Mammogram completed Vinay Carson [place] [facility] 10/25/2024 16:52:34 022 Date of Last Colonoscopy completed Maddison Lutz [facility] 10/19/2024 13:40:49 laparoscopic supracervical hysterectomy completed Bogdan Starkey MD [address] [place], [address], [facility] 09/17/2023 14:40:55 ligation of bilateral fallopian tubes completed Sunni Chelseaks [facility] 04/21/2022 10:21:38 [facility] 04/21/2022 10:21:47 D & C completed Maddison Lutz [facility] 10/19/2024 13:31:59 D & C completed Maddison Lutz [facility] 10/19/2024 13:35:50 Imaging Results None recorded. Procedure Notes None recorded. Medical Equipment None Reported. Allergies No known drug allergies Medications Name Sig Start Date Stop Date Status Note LastModified by Organization Details LastModified Time metoprolo l succinate ER 50 mg tablet,ex tended release 24 hr TAKE 1 TABLET BY MOUTH EVERY DAY active Not Available Not Available No t Available hydrocodo ne 5 mg-acetam inophen 325 mg tablet TAKE 1-2 TABLETS BY MOUTH EVERY 6 (SIX) HOURS NEEDED FOR PAIN. INDICATI ONS: ACUTE PAIN 04/21 completed Not Available Not Available Not Available meclizine 12.5 mg tablet TAKE 1 TABLET BY MOUTH THREE TIMES DAILY NEEDED FOR DIZZINES S 10/19 completed Not Available Not Available Not Available metronida zole 500 mg tablet TAKE 1 TABLET BY MOUTH EVERY 12 HOURS FOR 7 DAYS active Not Available Not Available No t Available phentermi ne 37.5 mg tablet TAKE 1 TABLET BY MOUTH DAILY BEFORE BREAKFAS T 04/21 completed Not Available Not Available Not Available amlodipin e 10 mg tablet TAKE 1 TABLET BY MOUTH EVERY DAY 09/17 completed Not Available Not Available Not Available triamcino lone acetonide 0.1 % topical ointment APPLY 1 APPLICAT ION TOPICALL Y 2 (TWO) TIMES A DAY APPLY TOPICALL Y TO SCALP ONCE DAILY active Not Available Not Available No t Available lidocaine 5 % topical patch PLACE 1 PATCH ONTO THE SKIN DAILY TO PAINFUL AREA 12 HOURS PER DAY, REMOVE FOR 12 HOURS 10/19 completed Not Available Not Available Not Available ergocalci ferol (vitamin D2) 1,250 mcg (50,000 unit) capsule TAKE 1 CAPSULE BY MOUTH ONE TIME PER WEEK 10/19 completed Not Available Not Available Not Available diazepam 5 mg tablet TAKE 1 TABLET (5 MG TOTAL) BY MOUTH EVERY 8 (EIGHT) HOURS NEEDED (SPASMS) . 04/21 completed Not Available Not Available Not Available escitalop kevin 10 mg tablet TAKE 1 TABLET BY MOUTH EVERY DAY 04/21 completed Not Available Not Available Not Available cyclobenz aprine 5 mg tablet TAKE 1 TABLET BY MOUTH THREE TIMES A DAY NEEDED FOR MUSCLE SPASMS 09/17 completed Not Available Not Available Not Available triamcino lone-hydr ophilic base 0.1 % topical ointment 04/21 completed Not Available Not Available Not Available metoprolo l tartrate 25 mg tablet Take 12.5 mg by oral route. 04/21 completed Not Available Not Available Not Available Multi-V 04/21 completed Multi-V Refill Denied: No Refill DateOccu rred: 11/01/19 Edited by: Stephani Wells ) on 11/01/19 Stopped by: Stephani Wells ) on Not Available Not Available Not Available Stool Softener- Stimulant Laxative 8.6 mg-50 mg tablet TAKE 1 TABLET BY MOUTH TWICE A DAY NEEDED 04/21 completed Not Available Not Available Not Available calcium 315 mg (as citrate)- vitamin D3 6.25 mcg (250 unit) tablet 04/21 completed Calcium Citrate/ Vitamin D RxNorm: 0 Allow Substitu tion: True Refill Denied: No Refill DateOccu rred: 09/05/19 Edited by: Stephani Wells ) on 09/06/19 Stopped by: Stephani Wells ) on Not Available Not Available Not Available Xarelto 20 mg tablet 20 MG ORALLY DAILY AT 1700 FOR 30 DAYS 09/17 completed Not Available Not Available Not Available Wegovy 0.25 mg/0.5 mL subcutane ous pen injector INJECT 0.25 MG ONCE A WEEK FOR 1 MONTH THEN INCREASE TO 0.5 MG ONCE A WEEK active Not Available Not Available No t Available Wegovy 0.5 mg/0.5 mL subcutane ous pen injector INJECT 0.5 ML (0.5 MG TOTAL) UNDER THE SKIN EVERY 7 DAYS active Not Available Not Available No t Available Vitals Date Recorded Body height Body mass index (BMI) Body weight Body temperature Systolic And Diastolic Provider Name and Address Organization Details Last Updated DateTime 09/17/2023 157.48 cm 38.8 kg/m2 27806.5 8 g 97 [degF] 132/76 mm[Hg] Sowmya Arguello [id number] 4 14:18:28 Date Recorded Body weight Body mass index (BMI) Body height Systolic And Diastolic Provider Name and Address Organization Details Last Updated DateTime 10/19/2024 27140.34 g 37.9 kg/m2 157.48 cm 110/70 mm[Hg] Maddison Lutz [id number] 10/19/2024 13:38:21 Date Recorded Body weight Body mass index (BMI) Body height Body temperature Systolic And Diastolic Provider Name and Address Organization Details Last Updated DateTime 04/21/2022 83864.46 g 38.9 kg/m2 157.48 cm 97.8 [degF] 138/84 mm[Hg] Iraida Pachecolister [id number] 2 12:54:23 Social History Question Answer Notes LastModified by Organizat ion Details LastModified Time Tobacco Smoking Status Never Smoker Maddison Lutz [place] [id number] 10/19/2024 13:35:45 If You Are , What Was Your Level Of Alcohol Consumption Prior To ? None Information not available 10/19/2024 Are You Blind Or Do You Have Difficulty Seeing? No Information not available 10/19/2024 Are You Deaf Or Do You Have Serious Difficulty Hearing? No [email or web address] Information not available 10/19/2024 What Type Of Diet Are You Following? REGULAR Information not available 10/19/2024 How Many Children Do You Have? 2 [email or web address] Information not available 10/19/2024 What Is Your Relationship Status? [email or web address] Information not available 10/19/2024 Are You Sexually Active? Yes [email or web address] Information not available 10/19/2024 What Types Of Sporting Activities Do You Participate In? Sonia Information not available 10/19/2024 Sex: Female Functional Status Question Answer Note LastModified by Organizat ion Details LastModified Time Do you use any illicit or recreational drugs? No Information not available 10/19/2024 Do you or have you ever used any other forms of tobacco or nicotine? No [email or web address] Information not available 10/19/2024 What is your level of alcohol consumption? None [email or web address] Information not available 10/19/2024 Are you currently employed? No [email or web address] Information not available 10/19/2024 Do you or have you ever used e-cigarettes or vape? Never used electronic cigarettes [email or web address] Information not available 10/19/2024 What is your exercise level? Moderate [email or web address] Information not available 10/19/2024 Mental Status None recorded. Family History Relationship Description Onset Age of this Age Resolved Age Notes LastModified by Organization Details LastModified Time Father No current problems or disability [email or web address] Not available 10:21:52 Father No current problems or disability [email or web address] Not available 10/19 13:35:33 Mother No current problems or disability [email or web address] Not available 10:21:52 Mother Hypertensive disorder [email or web address] Not available 2024 13:35:33 Mother No current problems or disability [email or web address] Not available 10/19 13:35:33 Medical History Condition Response Other Cancer N High Blood Pressure Y Colon Cancer N Cytomegalovirus N Hyperthyroidism N Herpes (HSV) N Breast Cancer N Blood Transfusion N MRSA N Lung Cancer N Hypothyroidism N Depression N Incontinence N Panic Attacks N Neurological Disorder N Deep Vein Thrombosis N Anxiety Disorder N Autoimmune disease N Arthritis N Tuberculosis/Positive PPD N Shingles N Polycystic Ovarian Syndrome N Infertility N Cervical Cancer N Chlamydia N Hematuria N Stroke N Varicosities N Crohn's Disease N Seasonal allergies N Alzheimer's/Dementia N COPD/Emphysema N HPV/Genital Warts N Endometriosis N IBS (Irritable Bowel Syndrome) N History of Abnormal Pap N High Cholesterol N Liver Disease N Kidney Infection N Fibromyalgia N Ulcer N Kidney Disease N HIV N Gallbladder disease N Sickle Cell Disease/Trait N Von Willebrand disease N ADD/ADHD N Eating Disorder N Anemia N Diabetes Mellitus (non-insulin dependent ) N Ovarian Problems N Multiple Sclerosis N Gonorrhea N Frequent Urinary Tract infections N Osteopenia N Headaches/migraines N GERD (reflux) N Ovarian Cancer N Diabetes (insulin dependent) N Seizures/Epilepsy N Breast Problems N Fibroids N Heart Attack N Asthma N Lupus N Endometrial Cancer N Rubella N Blood Clotting Disorder N Bipolar Disorder N Diabetes Mellitus (during ) N Ulcerative Colitis N Hepatitis N Heart Disease N Pulmonary Embolism N RPR N Chicken Pox N Osteoporosis N Gynecological History Statement/Question Response Date of Last Colonoscopy 08/30/2021 Date of last HPV 10/19/2024 Date of LMP Most Recent Bone Density Date of Last Pap Smear 10/19/2024 Most Recent Mammogram 10/19/2024 Current Control Method Hysterectom y Age at Menarche 17 Obstetrics History GPAL:G 3 P 2 0 1 2 Type Value Full Term 2 Induced 1 Living 2 Total 3 Immunizations Vaccine Type Date Status Note Provider Nam e and Address Organization Details Recorded Time influenza nasal, unspecified formulation 06/30/2024 completed Maddison brooke, [facility] [employer] 10/19/2024 13:36:24 Past Encounters Encounter ID Performer Location Encounter Start Date Encounter Closed Date Diagnosis/Indication Diagnosis SNOMED-CT Code Diagnosis ICD10 Code Diagnosis Note [id number] Marina Greco CNM [facility] [address] [place] [address] 04/21/2022 11:56:07 04/21/2022 14:51:46 Gynecologic examination [id number] Z01.419 Venereal d isease screening [id number] Z11.3 Screening for malignant neoplasm of cervix [id number] Z12.4 [id number] Bogdan Starkey MD [facility] [address] [place] [address] 09/17/2023 13:46:59 09/20/2023 13:08:18 Gynecologic examination [id number] Z01.419 y.o. here for annual exam. - Pap up to date from , discussed natural course of HPV infection, no new exposures. Plan to repeat cotesting in years. - Routine labs done with PCP - Mammo last year WNL, discussed different guideline recommenda tions, pt without family hx, would like to proceed with q2yr screening, repeat next year // rx provided - Colonoscop y done, can continue q10 years screens - DEXA at age 65 or after 50 if you have risk factors for osteoporos is - Depression screen NEG - BMI counseling , diet and exercise reviewed - RTO for annual or PRN Screening for malignant neoplasm of cervix [id number] Z12.4 Screening for malignant neoplasm of breast [id number] Z12.31 Depression screening 171 762842 Z13.31 refer to intake screening [id number] Mercedes Gonzalez MD [facility] [address] [place] [address] 10/19/2024 13:27:50 10/19/2024 16:34:26 Gynecologic examination [id number] Z01.419 Screening for malignant neoplasm of cervix 111228326 Z12.4 history of supracervi jaya hysterecto my Screening for malignant neoplasm of breast 132804092 Z12.39 Depression screening 171 809813 Z13.31 PHQ9: 0. Pt educated on normal scoring, and discussed depression precaution s and when to notify HCP/go to ER. Health Concerns Section Related Observation LastModified by Organization Detai ls LastModified Time None Recorded Concern Status LastModified by Organization Details LastModified Time None Recorded Advance Directives Directive None Recorded Payers Insurance Date Sequence Insurance Name Policy Number Policy Martinez Covered Member ID Maritnez Member ID Guarantor Name 10/20/2024 [employer] [facility] [facility] [place] [facility] ON OR AFTER 07/30/2020 (MEDICAID REPLACEMENT - HMO) Sharla Cleary [id number] Sharla Cleary 10/20/2024 1 [employer] Sharla Cleary [id number] Sharla Cleary Notes Date Note Type Note Provider Name and Address Organization Details Recorded Time 04/21/2022 text/html Annual GYNReport ed bypatient.History:n o gynecologic complaints Menstrual cycle:Normal menses Urinary symptoms:No hematuria; No incontinence Vulva:No genital lesion Vagina:Normal vaginal discharge Breast:No breast pain; No breast lump; No nipple discharge Sexual complaints:No sexual complaints; No pain during intercourse; Normal libido Menopausal Symptoms:No menopausal symptoms; Normal vaginal lubrication Psychological symptoms:No depression; No anxiety; No PMDD Preventive measures:Encourage self breast examination; Encourage regular exercise; Mammogram performed within the past year Had trich and BV about a month ago. Wants to do ELIZABETH. Marina Greco, TASHIA [address] [facility], [place], [address], [place] [id number] 04/26/2022 19:59:42 09/17/2023 text/html Sharla is here f or aex.Last pap 04/21/22.Has had hysterectomy.Last mammogram today at [facility].Last colonoscopy was completed less than 10 years ago but pt cannot recall exact date. Bogdan Starkey MD [facility], [facility] [facility], [place], [address], [facility] [employer] 09/17/2023 14:52:56 10/19/2024 text/html Annual GYNReport ed bypatient.Menstrual cycle:Normal menses Urinary symptoms:No hematuria; No incontinence Vulva:No genital lesion Vagina:Normal vaginal discharge Breast:No breast pain; No breast lump; No nipple discharge Sexual complaints:No sexual complaints; No pain during intercourse; Normal libido Menopausal Symptoms:No menopausal symptoms; Normal vaginal lubrication Psychological symptoms:No depression; No anxiety; No PMDD Sharla is a 59 yr old female. Pt is here for annual. Pt had SUPRACERVICAL hysterectomy. No concerns today. Mercedes Gonzalez MD [facility], [facility], [place], [address], [facility] [employer] 10/19/2024 14:20:58 OBGyn Episode Ob Episode Information Episode Created Date Number of Fetuses Patient Bloodtype Patient rh Status Prepregnancy Weight lbs Domestic Partner Domestic Partner Phone Father Name Field Administrative Assistant Status 10/19/19 25 1 CLOSED Fetus Data First Name Last Name Admitted to NICU Weight (g) Sex Living Outcome Pediatric Complications Fetus ID Race Codes Race Delivery Type , Spontane ous [id number] [place] Calculation Initial [place] Date Initial Exam Date Initial Exam Provider Initial Ultrasound Date Last Menstrual Period Date Ultra Sound Weeks Gestation 0 Eighteen To Twenty Week [place] Update Ultra Sound Date Fundal Height At Umbil Quickening Date Ultra Sound Latest Weeks Gestation Final [place] Confirmed By Final [place] Confirmed Date Final [place] Date Ultra Sound Latest Days Gestation 0 0 Menstrual History Last Menstrual Date Menses Monthly On Bcp Conception Prior Menses Frequency Hcg Plus Date Menarche Onset Age Delivery Information Delivery Date Delivery Type Labor Anesthesia Weeks Gestation Incision Type Labor Labor Length Hrs Delivered By Post Complications Tubal Sterilization Discharge Date Comments 3 Discharge Information Feeding Method Contraceptive Method Maternal HG B and HCT Levels Ob Episode Information Episode Created Date Number of Fetuses Patient Bloodtype Patient rh Status Prepregnancy Weight lbs Domestic Partner Domestic Partner Phone Father Name Field Administrative Assistant Status 10/19/19 1 CLOSED Fetus Data First Name Last Name Admitted to NICU Weight (g) Sex Living Outcome Pediatric Complications Fetus ID Race Codes Race Delivery Type F Full Term [id number] [place] Calculation Initial [place] Date Initial Exam Date Initial Exam Provider Initial Ultrasound Date Last Menstrual Period Date Ultra Sound Weeks Gestation 0 Eighteen To Twenty Week [place] Update Ultra Sound Date Fundal Height At Umbil Quickening Date Ultra Sound Latest Weeks Gestation Final [place] Confirmed By Final [place] Confirmed Date Final [place] Date Ultra Sound Latest Days Gestation 0 0 Menstrual History Last Menstrual Date Menses Monthly On Bcp Conception Prior Menses Frequency Hcg Plus Date Menarche Onset Age Delivery Information Delivery Date Delivery Type Labor Anesthesia Weeks Gestation Incision Type Labor Labor Length Hrs Delivered By Post Complications Tubal Sterilization Discharge Date Comments 7 Discharge Information Feeding Method Contraceptive Method Maternal HG B and HCT Levels Ob Episode Information Episode Created Date Number of Fetuses Patient Bloodtype Patient rh Status Prepregnancy Weight lbs Domestic Partner Domestic Partner Phone Father Name Field Administrative Assistant Status 10/19/19 1 CLOSED Fetus Data First Name Last Name Admitted to NICU Weight (g) Sex Living Outcome Pediatric Complications Fetus ID Race Codes Race Delivery Type M Full Term [place] Calculation Initial [place] Date Initial Exam Date Initial Exam Provider Initial Ultrasound Date Last Menstrual Period Date Ultra Sound Weeks Gestation 0 Eighteen To Twenty Week [place] Update Ultra Sound Date Fundal Height At Umbil Quickening Date Ultra Sound Latest Weeks Gestation Final [place] Confirmed By Final [place] Confirmed Date Final [place] Date Ultra Sound Latest Days Gestation 0 0 Menstrual History Last Menstrual Date Menses Monthly On Bcp Conception Prior Menses Frequency Hcg Plus Date Menarche Onset Age Delivery Information Delivery Date Delivery Type Labor Anesthesia Weeks Gestation Incision Type Labor Labor Length Hrs Delivered By Post Complications Tubal Sterilization Discharge Date Comments 0 Discharge Information Feeding Method Contraceptive Method Maternal HG B and HCT Levels
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
--- OUTSIDE RECORDS SUMMARY | 2025-03-09 17:24 | XMS_ITS | Clinical Summary ---
Author Organization [facility] [email or web address] Address [address] [place] [address] Care Team Providers Care Coronary Care Unit Nurse Name Role Phone Unavailable Primary Care Provider Unavailabl e Source Comments [facility],non-owned Affiliates and Associated Physician Practices is amultiple site organization consisting of ambulatory clinics and hospital sitesin [place], [place], [place] and [place]. This disclosure is being madepursuant to the Care Everywhere program and may not contain all information available regarding this patient. 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 Gender Identity Not on file Sexual Orientation Not on file Last Filed Vital Signs Vital Sign Reading Time Taken Comments Blood Pressure 131/89 12/09/2022 11:46 AM CDT Pulse 95 12/09/2022 11:46 AM CDT Temperature 36.8 C (98.2 F) 12/09/2022 11:46 AM CDT Respiratory Rate 18 12/09/2022 11:46 AM CDT Oxygen Saturation 96% 12/09/2022 11:46 AM CDT Inhaled Oxygen Concentration - - Weight 93.9 kg (207 lb) 12/09/2022 9:37 AM CDT Height 157.5 cm (5' 2) 12/09/2022 9:37 AM CDT Body Mass Index 37.86 12/09/2022 9:37 AM CDT Plan of Treatment Health Maintenance Due Date Last Done Comments COLOGUARD (AGES 45-75) - COL ON CA SCREENING 1967 COLON MONITORING 1967 COLONOSCOPY - COLON CA SCREENING 1967 CT COLONOGRAPHY - COLON CA SCREENING 1967 Colorectal Cancer Screening 1967 FIT - COLON CA SCREENING 1967 FLEX SIG - COLON CA SCREENING 1967 LIPID TESTING 1967 MAMMOGRAM 1967 HEPATITIS C SCREENING 04/04/1985 DTAP/TDAP/TD VACCINES (1 - Tdap) 1986 HEPATITIS B VACCINE (1 of 3 - 19+ 3-dose series) 1986 PAP SMEAR 1988 PNEUMOCOCCAL VACCINE 50+ (1 of 1 - PCV) 2017 ZOSTER VACCINE (1 of 2) 2017 COVID-19 VACCINE (4 - 2023-2 5 season) 2024 08/05/2021, 11/23/2020, 11/02/2020 DEPRESSION SCREENING 08/30/2024 INFLUENZA VACCINE (#1) 2025 2, 07/16/2021 HIV SCREENING Completed 12/09/2022 HIB VACCINE Aged Out No longer eligi ble based on patient's age to complete this topic HPV VACCINE Aged Out No longer eligi ble based on patient's age to complete this topic MENINGOCOCCAL (Group B) VACCINE SHARED DECISION-MAKING Aged Out No longer eligible based on patient's age to complete this topic MENINGOCOCCAL GROUPS A/C/Y/W VACCINE Aged Out No longer eligible b ased on patient's age to complete this topic Procedures Procedure Name Priority Date/Time Associated Diagnosis Comments HIV-1 HIV-2 ANTIBODY + HIV P24 AG PANEL STAT 12/09/2022 1:42 PM CDT from Last 3 Months or Most Recently Relevant to Health Maintenance Results * HIV-1 HIV-2 ANTIBODY + HIV P24 AG PANEL (12/09/2022 1:42 PM CDT) HIV Antigen/Antibod y 1 & 2 Non-reacti ve Non-react brian 12/09/2022 2:43 PM CDT [facility] Comment:No Laboratory eviden ce of HIV infection. Blood BLOOD SPECIMEN / Unknown Venipuncture / Unknown 12/09/2022 1:42 PM CDT 12/09/2022 2:03 PM CDT us Grabiel Moran MD LAB - CHEMISTRY ORDERABLES Fi nal Result Performing Organization Address City/State/[facility] Co de Phone Number [facility] [address] [place] [address], [facility] [phone] from Last 3 Months or Most Recently Relevant to Health Maintenance Insurance [facility]
--- OUTSIDE RECORDS SUMMARY | 2025-03-09 17:24 | XMS_ITS | Encounter Summary ---
Author Organization [facility] Healthcare Address [address] [place] [address] Care Team Providers Care Business Analytics Analyst Name Role Phone Letty Vallejo MD Primary Care Provider [phone] Ender Palacios MD Unavailable [phone] Reason for Visit * Reason Onset Date Comments Scheduling Appointments 05/05/2023 Called t o verify pt insurance. Pt has [employer] Medicaid and diagnosis is not covered. Advised pt appt would be [id number]. Pt canceled appointment. Encounter Details Date Type Department Care Team (Late st Contact Info) Description 05/05/2023 Telephone [facility] Nutrition Counseling [facility] [address] [address] [place] [address] Scheduling Appointments (Called to verify pt insurance. Pt has [employer] Medicaid and diagnosis is not covered. Advised pt appt would be [id number]. Pt canceled appointment. ) Social History Tobacco Use Types Packs/Day Years Used Date Smoking Tobacco: Never Smokeless Tobacco: Never Alcohol Use Standard Drinks/Week Comments Not Currently 0 (1 standard drink = 0.6 oz pur e alcohol) AUDIT-C Answer Date Recorded Q1: How often do you have a drink containing alcohol? Never 12/17/2022 Q2: How many drinks containi ng alcohol do you have on a typical day when you are drinking? Patient does not drink Q3: How often do you have si x or more drinks on one occasion? 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 Gender Identity Female 06/18/2021 7:49 PM CDT Sexual Orientation Straight 06/18/2021 7: 49 PM CDT documented as of this encounter Plan of Treatment Not on file documented as of this encounter Visit Diagnoses Not on filedocumented in this encounter Care Teams Business Analytics Analyst Relationship Specialty Start Date End Date Letty Vallejo MD [address] [place] [address] [place] [id number] PCP - General 11/02/19 Ender Palacios MD [address] [place] [address] Consulting Physician Plastic Surgery 12/12/21 documented as of this encounter
--- NOTE | 2025-03-09 19:20 | PC.NURSE ---
Pt presents to ED c/o bruise to R thigh x 4 days. Per pt finds it concerning because its getting darker and my platelets are low. Denies any trauma to thigh
--- NOTE | 2025-03-09 19:25 | PC.NURSE ---
Pt state she took a baby aspirin at home about 2hrs ago to prevent blood clot per google.
[2025-03-09 19:26] VITALS: BP 135/92; RESP 18; TEMP 36.4; O2SAT 97
--- NOTE | 2025-03-09 19:34 | ED_ITS ---
HPI - General Adult General Chief complaint: Recheck/Abnormal Lab/Rx Stated complaint: high platelets, bruise on R inner thigh Time Seen by Provider: 03/09/25 19:27 History of Present Illness HPI narrative: Patient is a 59-year-old female presents emergency department this evening complaining of bruise to her right inner thigh that she has noticed 4 days ago denies any known injury. Patient does have a history of known elevated platelets. Denies any additional symptoms or concerns at this time.. Related Data Allergies Allergy/AdvReac Type Severity Reaction Status Date / Time No Known Allergies Allergy Verified 03/22/24 07:43 Review of Systems Review of Systems: All systems are reviewed and are negative unless stated otherwise in the HPI. [facility] Past Medical History Medical History Hypertension Hypertension Atrial fibrillation Surgical History Surgical History History of cervical spinal arthrodesis History of tonsillectomy History of hysterectomy History of hysterectomy History of cervical spinal surgery Hx of tonsillectomy Family History Family History Mother Hypertension Mother Hypertension Other Patient's father is Social History Social History Social History: Surrogate medical decision maker: Sarahi Bernardo, sibling. Code status: Full code. Smoking status: Never smoker Alcohol intake: never Substance use: never Substance use type: does not use Do You Feel Safe in your Home?: Yes Lack of Transportation: No Lack of Food: Never True Current Housing: I Have Housing Concerned About Future Housing: No Difficulty Paying Gas/Electric Bills: No Difficulty Paying for Meds: No Currently Unemployed: No Education: High School Diploma/GED Difficulty w/ Childcare or Family Care: No Additional living arrangements comments: Lives with sister in [place]. Additional occupation/education comments: Currently unemployed. Spiritual care concerns: No Exam Narrative: General: Alert, awake, afebrile, in no acute distress. HEENT: PERRL, no rhinorrhea, no post nasal drip, oropharynx clear. Neck: Trachea midline, no JVD, no lymphadenopathy. Cardiovascular: Regular rate and rhythm, no murmurs, rubs or gallops, no peripheral edema. Respiratory: Clear to auscultation bilaterally, no tachypnea, no wheezing, no rhonchi, no rubs, no respiratory distress. Abdomen: Soft, nontender, nondistended, no rebound, no guarding, no peritoneal signs. Musculoskeletal: No joint swelling or deformity, normal muscle tone, small round bruise to the inner right upper thigh, slightly tender to touch, does not resemble petechia or purpura. Skin: No rashes or petechia, no signs of infection. Psychiatric: Alert and oriented, normal behavior and judgment for situation. Neurological: Alert and oriented to person, place, and time. Follows all commands. No focal deficits, speech is clear and fluent. Course Vital Signs Vital signs: Vital Signs Temperature 97.8 F 03/09/25 17:24 Pulse Rate 101 H 03/09/25 17:24 Respiratory Rate 16 03/09/25 17:24 Blood Pressure 145/90 H 03/09/25 17:24 Pulse Oximetry 99 03/09/25 17:24 Temperature 97.6 F 03/09/25 19:26 Pulse Rate 101 H 03/09/25 17:24 Respiratory Rate 18 03/09/25 19:26 Blood Pressure 135/92 H 03/09/25 19:26 Pulse Oximetry 97 03/09/25 19:26 Oxygen Delivery Room Air 03/09/25 19:26 Medical Decision Making MDM Narrative Medical decision making narrative: The patient was evaluated by myself in the emergency department. History is obtained from patient who is an independent historian and physical exam was performed. External medical records were reviewed at this time. Patient was reassured that the small bruising is nothing concerning. Differential diagnosis considerations include petechia, purpura, hematoma, cellulitis, insect bite. Comorbidities impacting this visit include none. I have evaluated and discussed social determinants of health with the patient that could potentially impact subsequent diagnosis and treatment plans. On repeat assessment of the patient, reevaluation revealed that the patient is doing well and is in no acute distress. Patient symptoms have improved since she arrived to our emergency department. Repeat vital signs were all reviewed and noted to be stable. Differential diagnosis and treatment plan were discussed with the patient at bedside. Patient agrees with discussion and after shared medical decision making agrees with discharge. All questions were answered to the patient's satisfaction. Patient will follow up with her PCP in 3-5 days. Patient was provided with strict return precautions and instructed to return to the emergency department if any new or worsening symptoms develop. The patient was discharged in stable condition. Vital Signs Vital Signs: Vital Signs Temperature 97.8 F 03/09/25 17:24 Pulse Rate 101 H 03/09/25 17:24 Respiratory Rate 16 03/09/25 17:24 Blood Pressure 145/90 H 03/09/25 17:24 Pulse Oximetry 99 03/09/25 17:24 Temperature 97.6 F 03/09/25 19:26 Pulse Rate 101 H 03/09/25 17:24 Respiratory Rate 18 03/09/25 19:26 Blood Pressure 135/92 H 03/09/25 19:26 Pulse Oximetry 97 03/09/25 19:26 Oxygen Delivery Room Air 03/09/25 19:26 Discharge Plan Discharge Clinical Impression: Superficial bruising of thigh Patient Disposition: Home Condition: Improved Instructions: Antibiotic Form, Normal Exam (ED) Additional Instructions: Please follow-up with your family doctor within the next 3-5 days. Return emergency department if any new or worsening symptoms develop. Patient Language: Malawian Prescriptions: No Action metoprolol succinate 50 mg Tablet Extended Release 24 Hr 50 mg PO QAM 30 Days Qty: 30 0RF Xarelto 20 mg Tablet 20 mg PO DAILY@1700 30 Days Qty: 30 0RF meclizine 12.5 mg tablet 12.5 mg PO TID PRN (Reason: dizziness) Qty: 10 0RF metoprolol succinate 50 mg tablet extended release 24 hr 25 mg PO DAILY Qty: 15 0RF Follow-up/Referrals: Yoni,Letty Sky MD [Primary Care Provider] - 3 Days Time of Disposition: 19:35
--- OUTSIDE RECORDS SUMMARY | 2025-03-09 19:39 | XMS_ITS | Encounter Summary ---
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
--- OUTSIDE RECORDS SUMMARY | 2025-03-09 19:39 | XMS_ITS | Encounter Summary ---
Author Organization [facility] Healthcare Address [address] [place] [address] Care Team Providers Care Marine Diesel Mechanic Name Role Phone Letty Vallejo MD Primary Care Provider [phone] Ender Palacios MD Unavailable [phone] Reason for Visit * Reason Onset Date Comments Scheduling Appointments 05/05/2023 Called t o verify pt insurance. Pt has [employer] Medicaid and diagnosis is not covered. Advised pt appt would be [id number]. Pt canceled appointment. Encounter Details Date Type Department Care Team (Late st Contact Info) Description 05/05/2023 Telephone [facility] Nutrition Counseling [facility] [address] [place] [address] Scheduling Appointments (Called to verify pt insurance. Pt has [employer] Medicaid and diagnosis is not covered. Advised pt appt would be [id number]. Pt canceled appointment. 

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
--- OUTSIDE RECORDS SUMMARY | 2025-03-09 19:40 | XMS_ITS | Clinical Summary ---
Author Organization [facility] Address [address] [place] [address] Care Team Providers Care Astronaut Mission Specialist Name Role Phone Letty Vallejo MD Primary Care Provider [phone] Allergies No known active allergies Medications vitamin D2, ergocalciferol, [address] UNITS capsule Take 50,000 Units by mouth [...] 07/17/2021 Assessment & Plan (07/17/2021 9:33 AM HYDRAULIC STRAINER OPERATOR): She has not been having any recent [...] pain. Assessment & Plan (07/17/2021 9:33 AM HYDRAULIC STRAINER OPERATOR): Her chest pain sounds noncardiac in nature. I recommended an echocardiogram for further evaluation. At this time, I do not think that she requires stress testing. 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 Not on file [...] Will RN Medical Devices Implanted Type Area Mud Analysis Well Logging Captain Device Identifier Shelf Expiration Date Model / Serial / Lot [place] 2 Level 42mm Plate Implanted:Qty : 1 on 05/29/2021 by Dion Blas MD at [facility] Plate N/A: Spine Cervical [employer] - DIV RICKI NITISH [id number] / / Description:C4-6 St Variable Screw Implanted:Qty : 6 on 05/29/2021 by Dion Blas MD at [facility] Screw N/A: Spine Cervical [employer] - DIV RICKI NITISH [id number] / / Description:C4-6 Bio4 Viable Bone Matrix-Spine Implanted:Qty : 1 on 05/29/2021 by Dion Blas MD at [facility] N/A: Spine Cervical [employer] 01/19/2024 [id number] / [id number] / [id number] Description:C4-5, C5-6 [place] Cervical Interbody Implanted:Qty : 1 on 05/29/2021 by Dion Blas MD at [facility] N/A: Spine Cervical [id number] 10/18/2025 [id number] / / [id number] Description:K2M C5-6 SPACE [place] Cervical Interbody Implanted:Qty : 1 on 05/29/2021 by Dion Blas MD at [facility] N/A: Spine Cervical 03/17/2025 [id number] / / [id number] Description:K2M C4-5 Explanted Type Area Mud Analysis Well Logging Captain Device Identifier Shelf Expiration Date Model / Serial / Lot Distration Pin 12mm - [id number] Explanted:Qty: 2 on 05/29/2021 at [facility] Pin [employer] [id number] / / Procedures Procedure Name Priority Date/Time Associated Diagnosis Comments MG SCREENING W OCTAVIANO DAI DIGI Routine 08/11/2021 11:26 AM HYDRAULIC STRAINER OPERATOR Encounter for screening mammogram for malignant neoplasm of breast from Last 3 Months or Most Recently Relevant to Health Maintenance Results * MG SCREENING W OCTAVIANO DAI DIGI (08/11/2021 11:26 AM HYDRAULIC STRAINER OPERATOR) Anatomical Region Laterality Modality Breast Bilateral Mammography 08/11/2021 2:31 PM HYDRAULIC STRAINER OPERATOR Impressions 08/11/2021 2:32 PM HYDRAULIC STRAINER OPERATOR =====IMPRESSION:===== No mammographic findings suggestive of malignancy ASSESSMENT: ACR BI-RADS 2 - BENIGN FINDING(S) Recommendation: 1: Routine Screening Bilateral COMMENTS: Ordered By: WILMAR MELO Interpreted By: [place] Edwards MD, 08/11/2021 2:31 PM Narrative 08/11/2021 2:32 PM HYDRAULIC STRAINER OPERATOR EXAMINATION: Digital bilateral screening mammogram with 3-D [...] Most Recently Relevant to Health Maintenance Insurance [facility] Advance Directives Documents on File Type Date Recorded Patient Plug Overwrap Machine Tender Expl anation Legal Documents 01/08/2023 3:06 PM [...] 2:00 AM 02/03/2021 2:57 PM Care Teams Astronaut Mission Specialist Relationship Specialty Start Date End Date Letty Vallejo MD [address] [facility] [place] [address] PCP - General 03/07/16
--- OUTSIDE RECORDS SUMMARY | 2025-03-09 19:40 | XMS_ITS | Encounter Summary ---
Author Organization [facility] Facility Care Team Providers Care Electrical Engineer Name Role Phone Letty Vallejo MD Primary Care Provider [phone] Ender Palacios MD Unavailable [phone] Steffen Macias PT Unavailable [phone] Encounter Details Date Type Department Care Team (Latest Contact Info) Description 10/07/2018 Orders Only [facility] CLINCONV ProviderLula MD [address] [place] [id number] Social History Tobacco Use Types Packs/Day Years Used Date Smoking Tobacco: Never Assessed Comments Unknown Sex and Gender Information Value Date Recorded Sex Assigned at Not on file Legal Sex Female 2:41 AM BALLISTICS PROFESSOR Gender Identity Female 06/18/2021 7:49 PM CDT Sexual Orientation Straight 06/18/2021 7: 49 PM CDT documented as of this encounter Plan of Treatment Not on file documented as of this encounter Procedures Procedure Name Priority Date/Time Associated Diagnosis Comments SCAN - LABS 10/10/2018 12:00 AM BALLISTICS PROFESSOR documented in this encounter Results * SCAN - LABS (10/10/2018 12:00 AM BALLISTICS PROFESSOR) Narrative 10/10/2018 12:00 AM BALLISTICS PROFESSOR Ordered by an unspecified provider. Historical Provider Final Res ult documented in this encounter Visit Diagnoses Not on filedocumented in this encounter Care Teams Electrical Engineer Relationship Specialty Start Date End Date Letty Vallejo MD [address] [facility] [address] [place] [address] [place] [address] PCP - General 11/02/19 Ender Palacios MD [address] [facility] [address] [place] [address] [place] [address] Consulting Physician Plastic Surgery 12/12/21 [place] [address] [place] [address] Physical Therapist Physical Therapy 04/24/23 04/24/23 documented as of this encounter
--- OUTSIDE RECORDS SUMMARY | 2025-03-09 19:40 | XMS_ITS | Encounter Summary ---
Author Organization [facility] Facility Care Team Providers Care Director Of Kids Name Role Phone Letty Vallejo MD Primary Care Provider [phone] Ender Palacios MD Unavailable [phone] Steffen Macias PT Unavailable [phone] Encounter Details Date Type Department Care Team (Latest Contact Info) Description 12/06/2015 Orders Only [facility] CLINCONV ProviderLula MD [address] [place] [address] Social History Tobacco Use Types Packs/Day Years Used Date Smoking Tobacco: Never Assessed Comments Unknown Sex and Gender Information Value Date Recorded Sex Assigned at Not on file Legal Sex Female 2:41 AM CONTENT DIRECTOR Gender Identity Female 06/18/2021 7:49 PM CDT [...] on filedocumented in this encounter Care Teams Director Of Kids Relationship Specialty Start Date End Date Letty Vallejo MD [address] [facility] [address] [place] [address] [place] [address] PCP - General 11/02/19 Ender Palacios MD [address] [facility] [address] [place] [address] [place] [address] Consulting Physician Plastic Surgery 12/12/21 [place] [address] [place] [address] Physical Therapist Physical Therapy 04/24/23 04/24/23 documented as of this encounter
--- OUTSIDE RECORDS SUMMARY | 2025-03-09 19:40 | XMS_ITS | Clinical Summary ---
Author Organization [facility] [employer] Address [address] [place] [address] Care Team Providers Care Supervisor Pumping Station Name Role Phone Unavailable Primary Care Provider Unavailabl e Source Comments [facility],non-owned Affiliates and Associated Physician Practices is amultiple site organization consisting of ambulatory clinics and hospital sitesin [place], [place], [place] and [place]. This disclosure is being madepursuant to the Care Everywhere program and may not contain all information available regarding this patient. Last updated 18.[facility] [employer] Allergies No known active allergies Social History Tobacco Use Types Packs/Day Years Used Date Smoking Tobacco: Never Smokeless Tobacco: Never Tobacco Cessation:Counseling Given: Not Answered Alcohol Use Standard Drinks/Week Comments Never 0 (1 standard drink = 0.6 oz pur e alcohol) Comments Unknown Sex and Gender Information Value Date Recorded Sex Assigned at Not on file Legal Sex Female 5:04 AM BLOOD TYPER Gender Identity Not on file Sexual Orientation [...] ve Non-react brian 12/09/2022 2:43 PM CDT [facility] Comment:No Laboratory eviden ce of HIV infection. Blood BLOOD SPECIMEN / Unknown Venipuncture / Unknown 12/09/2022 1:42 PM CDT 12/09/2022 2:03 PM CDT us Grabiel Moran MD LAB - CHEMISTRY ORDERABLES Fi nal Result Performing Organization Address City/State/[facility] Co de Phone Number [facility] [address] [place] [address], [facility] [phone] from Last 3 Months or Most Recently Relevant to Health Maintenance Insurance [facility]
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
== END 2025-03-09 20:02 | disposition home or self-care (01) ==
LOC: ANHED 19:38
PROVIDERS: Emergency Provider Emergency Medicine; PCP Internal Medicine
DX: M79.81 Nontraumatic hematoma of soft tissue (principal)
CPT/HCPCS: 99281; 99283